=== PATIENT | male | born 1960 | race Caucasian/White ===

== ENCOUNTER 2020-08-09 17:12 | Inpatient (IN) ==
[2020-08-09 17:45] LABS: ABG Base Excess -10.2 MMOL/L (-2.5-2.5); ABG HCO3 16.6 MMOL/L (20-26); ABG Oxygen Saturation 97.8 % (95-100); ABG PCO2 54.8 MM HG (35-48); ABG TCO2 17.5 MMOL/L (23-27)
[2020-08-09 17:46] LABS: ABG PH 7.166 (7.35-7.45)
[2020-08-09 17:56] LABS: Basophils % 0.1 % (0.0-0.8); Eosinophils # 0.2 10*3/uL (0.0-0.87); Eosinophils % 0.5 % (0.00-10.9); Hemoglobin 15.9 GM/DL (14.0-18.0); Immature Granulocytes % 3.5 %; Immature Granulocytes Absolute 1.26 #; Lymphocytes # 2.3 10*3/uL (1.4-4.0); Lymphocytes % 6.6 % (21.2-54.2); Mean Corpuscular HGB Conc 33.1 GM/DL (32-36); Mean Corpuscular Volume 103.2 FL (87-102); Mean Platelet Volume 9.2 FL (9.6-12.0); Monocytes % 7.9 % (1.7-12.7); Neutrophils % 81.4 % (38.7-73.9); Platelet Count 147 T/CUMM (130-400); Red Blood Count 4.65 MC/CUMM (3.8-5.5); Red Cell Distribution Width 17.3 % (9.3-17.3); White Blood Count 35.7 T/CUMM (4-12)
[2020-08-09 18:08] LABS: ABG Base Excess -10.2 MMOL/L (-2.5-2.5); ABG HCO3 16.7 MMOL/L (20-26); ABG Oxygen Saturation 99.3 % (95-100); ABG PCO2 46.5 MM HG (35-48); ABG TCO2 15.9 MMOL/L (23-27); Glucose Heart Surgery 170 MG/DL (74-106); Hematocrit Heart Surgery 51.1 PERCENT (42-52); Hemoglobin Heart Surgery 16.7 G/DL (14.0-18.0); Ionized Calcium Arterial 1.27 MMOL/L (1.21-1.46); PCO2 Patient Temp Arterial 46.5 MMHG; PH Patient Temp Arterial 7.206; Patient Temperature 37 CELCIUS; Sodium Heart/CVR 143 MMOL/L (135-145)
[2020-08-09 18:12] LABS: ABG PH 7.206 (7.35-7.45)
[2020-08-09] MEDS ORDERED: HEPARIN 5,000 UNIT/1 ML VIAL ONE (18:21)
[2020-08-09] MEDS ORDERED: ceFAZolin 1,000 MG VIAL ONE ×2 (18:21→19:25)
[2020-08-09 18:36] LABS: Albumin 1.6 G/DL (3.4-5.0); Bilirubin,Total 0.4 MG/DL (0.2-1.0); Calcium 7.7 MG/DL (8.5-10.1); Osmolality,Calculated 287.1 MOS/KG (273-304); Total Protein 3.4 G/DL (6.4-8.3)
[2020-08-09] MEDS ORDERED: MIDAZOLAM 2 MG/2 ML VIAL ONE ×2 (19:21→20:14)
[2020-08-09] MEDS ORDERED: SEVOFLURANE 1 UNIT/15 MINUTE INH ONE ×10 (19:21→21:02)
[2020-08-09] MEDS ORDERED: fentaNYL 100 MCG/2 ML VIAL ONE (19:21)
[2020-08-09] MEDS ORDERED: ROCURONIUM 50 MG/5 ML VIAL IV ONE ×2 (19:21→19:25)
[2020-08-09] MEDS ORDERED: CALCIUM CHLORIDE 1,000 MG/10 ML VIAL IV ONE (19:25)
[2020-08-09] MEDS ORDERED: LACTATED RINGERS 1,000 ML IV ONE (19:25)
[2020-08-09] MEDS ORDERED: EPINEPHrine 1 MG/ML VIAL ONE (19:25)
[2020-08-09] MEDS ORDERED: SODIUM CHLORIDE 0.9% 4,000 ML IV ONE (19:25)
[2020-08-09] MEDS ORDERED: PHENYLEPHRINE 1 MG/10 ML SYRINGE IV ONE ×2 (19:25→19:37)
[2020-08-09] MEDS ORDERED: SODIUM BICARBONATE 50 MEQ/50 ML VIAL IV ONE (19:25)
[2020-08-09 19:39] LABS: Acanthocytes 1+; Anisocytosis 1+; Lymphocytes 4 % (20-55); Segmented Neutrophils 91 % (50-85); Total Cells Counted 100
[2020-08-09 19:40] LABS: Microcytosis Slight
[2020-08-09 20:52] LABS: Basophils # 0.1 10*3/uL (0.0-0.2); Basophils % 0.5 % (0.0-0.8); Eosinophils % 0.1 % (0.00-10.9); Hematocrit 49.1 VOL% (42.0-52.0); Hemoglobin 16.8 GM/DL (14.0-18.0); Immature Granulocytes % 0.6 %; Immature Granulocytes Absolute 0.09 #; Lymphocytes # 1.1 10*3/uL (1.4-4.0); Mean Corpuscular HGB Conc 34.2 GM/DL (32-36); Mean Corpuscular Volume 91.8 FL (87-102); Mean Platelet Volume 9.2 FL (9.6-12.0); Monocytes % 5.3 % (1.7-12.7); Neutrophils % 85.5 % (38.7-73.9); Platelet Count 110 T/CUMM (130-400); Red Blood Count 5.35 MC/CUMM (3.8-5.5); Red Cell Distribution Width 19.7 % (9.3-17.3)
[2020-08-09 20:53] LABS: ABG Base Excess -6.8 MMOL/L (-2.5-2.5); ABG Oxygen Saturation 95.8 % (95-100); ABG PCO2 45.2 MM HG (35-48); ABG PH 7.267 (7.35-7.45); ABG PO2 84.6 MM HG (80-95); ABG TCO2 17.5 MMOL/L (23-27)
[2020-08-09 21:11] LABS: Albumin 2.8 G/DL (3.4-5.0); Bilirubin,Total 1.1 MG/DL (0.2-1.0); Osmolality,Calculated 294.4 MOS/KG (273-304); Potassium 5.7 MMOL/L (3.5-5.1); Total Protein 5.3 G/DL (6.4-8.3)
[2020-08-09] MEDS: DEXTROSE 5% LACTATED RINGERS 1,000 ML IV SCH (21:14)
[2020-08-09 21:22] LABS: PT Patient Result 11.2 SECS (9.8-11.9); Partial Thromboplastin Time 26.8 SECS (23.9-33.8)
[2020-08-09 21:22] LABS: Anisocytosis 1+; Hypochromasia Slight; Lymphocytes 8 % (20-55); Myelocytes 1 %; Segmented Neutrophils 85 % (50-85); Total Cells Counted 100
[2020-08-09 21:23] LABS: Microcytosis Slight; Platelet Estimate Normal; Reactive Lymphocytes 3+
[2020-08-09] MEDS: HYDROmorphone 2 MG/1 ML VIAL IV PRN (21:47)
[2020-08-09] MEDS: fentaNYL INJ 1,250 MCG in SODIUM CHLORIDE 0.9% 225 ML IV PRN (22:35)
[2020-08-09] MEDS ORDERED: hydrALAZINE 20 MG/1 ML VIAL IV ONE (22:37)
[2020-08-09] MEDS ORDERED: niCARdipine INJ 25 MG in SODIUM CHLORIDE 0.9% 240 ML IV PRN (23:13)
[2020-08-09] MEDS ORDERED: cloNIDine 0.3 MG/24 HR PATCH TRANSDERM SCH (23:30)
[2020-08-09] MEDS: METOPROLOL TARTRATE 5 MG/5 ML VIAL IV PRN (23:35)
[2020-08-09 23:54] LABS: ABG Base Excess -5.3 MMOL/L (-2.5-2.5); ABG HCO3 20.2 MMOL/L (20-26); ABG Oxygen Saturation 99.1 % (95-100); ABG PCO2 48.6 MM HG (35-48); ABG PH 7.273 (7.35-7.45); ABG TCO2 18.8 MMOL/L (23-27)
[2020-08-10] MEDS ORDERED: ROCURONIUM 50 MG/5 ML VIAL IV ONE ×11 (01:43→14:07)
[2020-08-10] MEDS ORDERED: MIDAZOLAM 2 MG/2 ML VIAL ONE ×3 (01:43→11:20)
[2020-08-10] MEDS ORDERED: BUPIVACAINE MPF 0.25% 30 ML VIAL ONE (01:50)
[2020-08-10] MEDS ORDERED: HEPARIN 5,000 UNIT/1 ML VIAL ONE (01:50)
[2020-08-10] MEDS ORDERED: LIDOCAINE MPF 1% /EPI 30 ML VIAL ONE (01:50)
[2020-08-10] MEDS ORDERED: DEXTROSE 50% 25 GM/50 ML VIAL IV ONE (01:53)
[2020-08-10] MEDS ORDERED: DEXTROSE 50% 25 GM/50 ML VIAL IV PRN ×2 (02:11→02:24)
[2020-08-10] MEDS ORDERED: ceFAZolin 2,000 MG in PREMIX 1 EACH IV SCH (02:24)
[2020-08-10] MEDS ORDERED: GLUCAGON 1 MG VIAL IM PRN (02:24)
[2020-08-10] MEDS ORDERED: ceFAZolin 1,000 MG VIAL ONE (02:43)
[2020-08-10] MEDS ORDERED: PHENYLEPHRINE 1 MG/10 ML SYRINGE IV ONE ×3 (02:46→13:32)
[2020-08-10] MEDS ORDERED: SEVOFLURANE 1 UNIT/15 MINUTE INH ONE ×8 (03:42→14:03)
[2020-08-10] MEDS: DEXTROSE 5% LACTATED RINGERS 1,000 ML IV SCH ×3 (05:13→16:40)
[2020-08-10] MEDS: fentaNYL INJ 1,250 MCG in SODIUM CHLORIDE 0.9% 225 ML IV PRN ×2 (05:15→10:43)
[2020-08-10 05:18] LABS: ABG HCO3 24.1 MMOL/L (20-26); ABG Oxygen Saturation 95.3 % (95-100); ABG PCO2 37.8 MM HG (35-48); ABG PH 7.423 (7.35-7.45); ABG PO2 73.2 MM HG (80-95); ABG TCO2 25.3 MMOL/L (23-27)
[2020-08-10 05:28] LABS: Basophils # 0.1 10*3/uL (0.0-0.2); Basophils % 0.5 % (0.0-0.8); Eosinophils % 0.3 % (0.00-10.9); Hematocrit 45.3 VOL% (42.0-52.0); Hemoglobin 15.9 GM/DL (14.0-18.0); Immature Granulocytes % 0.5 %; Immature Granulocytes Absolute 0.05 #; Lymphocytes # 0.4 10*3/uL (1.4-4.0); Lymphocytes % 3.6 % (21.2-54.2); Mean Corpuscular HGB Conc 35.1 GM/DL (32-36); Mean Corpuscular Volume 89.7 FL (87-102); Mean Platelet Volume 9.2 FL (9.6-12.0); Monocytes % 5.9 % (1.7-12.7); Neutrophils % 89.2 % (38.7-73.9); Red Blood Count 5.05 MC/CUMM (3.8-5.5); Red Cell Distribution Width 20.3 % (9.3-17.3); White Blood Count 11.1 T/CUMM (4-12)
[2020-08-10 05:30] LABS: Platelet Count 106 T/CUMM (130-400)
[2020-08-10 06:00] LABS: Albumin 2.5 G/DL (3.4-5.0); Bilirubin,Total 2.1 MG/DL (0.2-1.0); Calcium 7.9 MG/DL (8.5-10.1); Osmolality,Calculated 295.3 MOS/KG (273-304); Potassium 4.9 MMOL/L (3.5-5.1); Total Protein 4.8 G/DL (6.4-8.3)
[2020-08-10 06:28] LABS: Band Neutrophils 5 % (0-10); Lymphocytes 5 % (20-55); Platelet Estimate Decreased; Segmented Neutrophils 84 % (50-85); Total Cells Counted 100
[2020-08-10] MEDS ORDERED: NOREPINEPHRINE 4 MG/4 ML VIAL IV ONE (07:18)
[2020-08-10] MEDS ORDERED: SODIUM CHLORIDE 0.9% 500 ML IV ONE (07:27)
[2020-08-10 07:38] LABS: ABG Base Excess 0.4 MMOL/L (-2.5-2.5); ABG HCO3 24.7 MMOL/L (20-26); ABG Oxygen Saturation 97.8 % (95-100); ABG PCO2 42.8 MM HG (35-48); ABG PH 7.386 (7.35-7.45); ABG PO2 96.8 MM HG (80-95); ABG TCO2 21.7 MMOL/L (23-27)
[2020-08-10] MEDS: INSULIN REGULAR 100 UNIT/ML SUBCUT SCH ×4 (07:38→23:06)
[2020-08-10] MEDS: NOREPINEPHRINE 8 MG in SODIUM CHLORIDE 0.9% 242 ML IV PRN ×2 (07:39→16:41)
[2020-08-10 07:41] LABS: Hematocrit 44.2 VOL% (42.0-52.0); Hemoglobin 15.4 GM/DL (14.0-18.0)
[2020-08-10 10:01] LABS: CKMB % 0.4 %
[2020-08-10 10:07] LABS: Troponin I 4.94 NG/ML (0.00-0.045)
[2020-08-10] MEDS ORDERED: ETOMIDATE 40 MG/20 ML VIAL IV ONE (11:23)
[2020-08-10] MEDS ORDERED: fentaNYL INJ 2,500 MCG in SODIUM CHLORIDE 0.9% 450 ML IV PRN (11:40)
[2020-08-10] MEDS ORDERED: DEXAMETHASONE 4 MG/1 ML VIAL ONE ×3 (12:02→14:08)
[2020-08-10] MEDS ORDERED: fentaNYL 100 MCG/2 ML VIAL ONE (12:51)
[2020-08-10] MEDS ORDERED: PHENYLEPHRINE 10 MG/1 ML VIAL IV ONE ×2 (13:45→13:48)
[2020-08-10] MEDS ORDERED: SODIUM CHLORIDE 0.9% 250 ML IV ONE ×2 (13:45→13:47)
[2020-08-10] MEDS ORDERED: LACTATED RINGERS 1,000 ML IV ONE (13:45)
[2020-08-10] MEDS: cefOXitin 2,000 MG in SYRINGE 1 EACH IV SCH ×3 (14:14→21:28)
[2020-08-10 16:36] LABS: Bilirubin,Urine Negative (Negative); Blood, Urine Large mg/dL (Negative); Glucose,Urine (UA) Negative (Negative); Ketones,Urine Negative (Negative); Mucus,Urine Occasional /LPF (Occasional); Nitrite,Urine Negative (Negative); Protein,Urine Negative; RBC,Urine 4 /HPF (0-4); Urine Appearance CLEAR (Clear); Urine Color Yellow (Yellow); Urine Specific Gravity 1.021 (1.001-1.035); Urine Urobilinogen < 2.0 EU/DL (0.2-1.0); WBC,Urine 1 /HPF (0-6)
[2020-08-11] MEDS: fentaNYL INJ 2,500 MCG in SODIUM CHLORIDE 0.9% 75 ML IV PRN ×3 (00:18→21:17)
[2020-08-11] MEDS: DEXTROSE 5% LACTATED RINGERS 1,000 ML IV SCH ×3 (01:23→17:14)
[2020-08-11] MEDS: NOREPINEPHRINE 8 MG in SODIUM CHLORIDE 0.9% 242 ML IV PRN ×2 (01:24→11:00)
[2020-08-11] MEDS: cefOXitin 2,000 MG in SYRINGE 1 EACH IV SCH ×2 (04:40→10:30)
[2020-08-11 04:49] LABS: ABG Base Excess 3.5 MMOL/L (-2.5-2.5); ABG HCO3 27.6 MMOL/L (20-26); ABG Oxygen Saturation 98.9 % (95-100); ABG PCO2 33.1 MM HG (35-48); ABG PH 7.504 (7.35-7.45); ABG TCO2 22.2 MMOL/L (23-27)
[2020-08-11 04:56] LABS: Basophils # 0.2 10*3/uL (0.0-0.2); Basophils % 0.8 % (0.0-0.8); Hematocrit 41.3 VOL% (42.0-52.0); Hemoglobin 14.2 GM/DL (14.0-18.0); Immature Granulocytes % 1.9 %; Lymphocytes # 0.5 10*3/uL (1.4-4.0); Lymphocytes % 2.2 % (21.2-54.2); Mean Corpuscular HGB Conc 34.4 GM/DL (32-36); Mean Corpuscular Volume 91.2 FL (87-102); Mean Platelet Volume 10.1 FL (9.6-12.0); Monocytes % 2.9 % (1.7-12.7); Neutrophils % 92.2 % (38.7-73.9); Platelet Count 113 T/CUMM (130-400); Red Blood Count 4.53 MC/CUMM (3.8-5.5); Red Cell Distribution Width 19.6 % (9.3-17.3); White Blood Count 21.4 T/CUMM (4-12)
[2020-08-11 05:16] LABS: Bilirubin,Total 2.2 MG/DL (0.2-1.0); Calcium 7.1 MG/DL (8.5-10.1); Potassium 4.1 MMOL/L (3.5-5.1); Total Protein 4.7 G/DL (6.4-8.3)
[2020-08-11 05:18] LABS: Band Neutrophils 5 % (0-10); Lymphocytes 3 % (20-55); Segmented Neutrophils 86 % (50-85); Total Cells Counted 100
[2020-08-11 05:19] LABS: Platelet Estimate Decreased
[2020-08-11 05:25] LABS: Troponin I 1.37 NG/ML (0.00-0.045)
[2020-08-11] MEDS: INSULIN REGULAR 100 UNIT/ML SUBCUT SCH ×4 (05:45→23:50)
[2020-08-11] MEDS ORDERED: ROCURONIUM 50 MG/5 ML VIAL IV ONE ×2 (08:25→08:26)
[2020-08-11] MEDS ORDERED: MIDAZOLAM 2 MG/2 ML VIAL ONE (08:26)
[2020-08-11] MEDS ORDERED: PHENYLEPHRINE 10 MG/1 ML VIAL IV ONE (08:28)
[2020-08-11] MEDS ORDERED: FAMOTIDINE 20 MG/2 ML VIAL IV SCH (09:00)
[2020-08-11] MEDS ORDERED: ceFAZolin 1,000 MG VIAL ONE (09:25)
[2020-08-11] MEDS ORDERED: MAGNESIUM SULF RIDER 2 GM in PREMIX 1 EACH IV ONE (10:30)
[2020-08-11] MEDS ORDERED: LEVOFLOXACIN INJ 750 MG in PREMIX 1 EACH IV ONE (11:00)
[2020-08-11] MEDS: metroNIDAZOLE INJ 500 MG in PREMIX 1 EACH IV SCH ×2 (12:24→21:11)
[2020-08-11] MEDS: ceFAZolin 1,000 MG in SYRINGE 1 EACH IV SCH (17:41)
[2020-08-11] MEDS: HYDROCORTISONE 100 MG VIAL IV SCH (17:41)
[2020-08-11] MEDS: NOREPINEPHRINE 16 MG in SODIUM CHLORIDE 0.9% 234 ML IV PRN (19:50)
[2020-08-12] MEDS ORDERED: PHENYLEPHRINE DRIP 40 MG/250 ML PREMIX IV PRN (01:04)
[2020-08-12] MEDS ORDERED: PHENYLEPHRINE DRIP 40 MG/250 ML PREMIX IV ONE (01:07)
[2020-08-12 01:21] LABS: ABG Base Excess 1.3 MMOL/L (-2.5-2.5); ABG HCO3 25.4 MMOL/L (20-26); ABG Oxygen Saturation 90.5 % (95-100); ABG PCO2 48.9 MM HG (35-48); ABG PH 7.359 (7.35-7.45); ABG PO2 62.7 MM HG (80-95); ABG TCO2 24.4 MMOL/L (23-27)
[2020-08-12 01:24] LABS: Basophils # 0.1 10*3/uL (0.0-0.2); Basophils % 0.5 % (0.0-0.8); Eosinophils # 0.1 10*3/uL (0.0-0.87); Eosinophils % 0.5 % (0.00-10.9); Hematocrit 38.1 VOL% (42.0-52.0); Hemoglobin 12.7 GM/DL (14.0-18.0); Immature Granulocytes Absolute 0.17 #; Lymphocytes # 0.6 10*3/uL (1.4-4.0); Lymphocytes % 3.6 % (21.2-54.2); Mean Corpuscular HGB Conc 33.3 GM/DL (32-36); Mean Platelet Volume 10.4 FL (9.6-12.0); Monocytes % 2.3 % (1.7-12.7); Neutrophils % 92.1 % (38.7-73.9); Platelet Count 103 T/CUMM (130-400); Red Blood Count 4.01 MC/CUMM (3.8-5.5); Red Cell Distribution Width 18.7 % (9.3-17.3); White Blood Count 17.4 T/CUMM (4-12)
[2020-08-12 01:40] LABS: Albumin 1.8 G/DL (3.4-5.0); Bilirubin,Total 2.5 MG/DL (0.2-1.0); Calcium 6.8 MG/DL (8.5-10.1); Osmolality,Calculated 297.6 MOS/KG (273-304); Potassium 4.2 MMOL/L (3.5-5.1); Total Protein 4.9 G/DL (6.4-8.3)
[2020-08-12 01:53] LABS: Band Neutrophils 4 % (0-10); Lymphocytes 3 % (20-55); Platelet Estimate Adequate; Segmented Neutrophils 89 % (50-85); Total Cells Counted 100
[2020-08-12] MEDS: MIDAZOLAM 100 MG in SODIUM CHLORIDE 0.9% 80 ML IV PRN ×2 (02:02→16:00)
[2020-08-12] MEDS: ceFAZolin 1,000 MG in SYRINGE 1 EACH IV SCH ×3 (03:16→17:16)
[2020-08-12 04:30] LABS: ABG Base Excess 1.9 MMOL/L (-2.5-2.5); ABG HCO3 26.1 MMOL/L (20-26); ABG PCO2 44.8 MM HG (35-48); ABG PH 7.392 (7.35-7.45); ABG TCO2 24.1 MMOL/L (23-27)
[2020-08-12] MEDS: fentaNYL INJ 2,500 MCG in SODIUM CHLORIDE 0.9% 75 ML IV PRN ×3 (04:43→20:09)
[2020-08-12] MEDS: metroNIDAZOLE INJ 500 MG in PREMIX 1 EACH IV SCH ×3 (04:55→20:59)
[2020-08-12] MEDS: HYDROCORTISONE 100 MG VIAL IV SCH ×3 (05:07→20:59)
[2020-08-12] MEDS: NOREPINEPHRINE 16 MG in SODIUM CHLORIDE 0.9% 234 ML IV PRN ×2 (05:36→17:18)
[2020-08-12] MEDS: INSULIN REGULAR 100 UNIT/ML SUBCUT SCH ×4 (05:52→23:41)
[2020-08-12] MEDS ORDERED: HYDROCORTISONE 100 MG VIAL IV SCH (07:02)
[2020-08-12] MEDS: FAMOTIDINE 20 MG/2 ML VIAL IV SCH ×2 (09:43→20:59)
[2020-08-12] MEDS: MULTIVITAMIN LIQUID (CENTRUM) 60 ML BOTTLE PO SCH (09:43)
[2020-08-12] MEDS ORDERED: ALBUMIN 5% 25 GM in PREMIX 1 EACH IV ONE (12:30)
[2020-08-12] MEDS: LEVOFLOXACIN INJ 750 MG in PREMIX 1 EACH IV SCH (12:42)
[2020-08-12] MEDS: ACETAMINOPHEN 325 MG/10.15 ML UDCUP PO PRN ×2 (12:46→18:06)
[2020-08-13] MEDS: ACETAMINOPHEN 325 MG/10.15 ML UDCUP PO PRN ×2 (00:44→10:23)
[2020-08-13] MEDS: SODIUM HYPOCHLORITE 0.25% IRRIG 473 ML BOTTLE TOP PRN (02:00)
[2020-08-13] MEDS: ceFAZolin 1,000 MG in SYRINGE 1 EACH IV SCH ×3 (02:14→18:49)
[2020-08-13] MEDS ORDERED: HEPARIN/NACL 0.9% 2 UNITS/ML 500 ML IV ONE (02:52)
[2020-08-13] MEDS: fentaNYL INJ 2,500 MCG in SODIUM CHLORIDE 0.9% 75 ML IV PRN (03:25)
[2020-08-13 04:58] LABS: Basophils # 0.1 10*3/uL (0.0-0.2); Basophils % 0.5 % (0.0-0.8); Eosinophils # 0.1 10*3/uL (0.0-0.87); Eosinophils % 0.5 % (0.00-10.9); Hematocrit 34.3 VOL% (42.0-52.0); Immature Granulocytes % 0.5 %; Immature Granulocytes Absolute 0.06 #; Lymphocytes # 0.7 10*3/uL (1.4-4.0); Lymphocytes % 5.5 % (21.2-54.2); Mean Corpuscular HGB Conc 32.1 GM/DL (32-36); Mean Corpuscular Volume 98.8 FL (87-102); Mean Platelet Volume 9.9 FL (9.6-12.0); Monocytes % 6.2 % (1.7-12.7); Neutrophils % 86.8 % (38.7-73.9); Platelet Count 108 T/CUMM (130-400); Red Blood Count 3.47 MC/CUMM (3.8-5.5); Red Cell Distribution Width 18.5 % (9.3-17.3); White Blood Count 12.8 T/CUMM (4-12)
[2020-08-13] MEDS: metroNIDAZOLE INJ 500 MG in PREMIX 1 EACH IV SCH ×3 (05:02→21:13)
[2020-08-13 05:06] LABS: PT Patient Result 10.9 SECS (9.8-11.9)
[2020-08-13 05:14] LABS: ABG Base Excess 2.4 MMOL/L (-2.5-2.5); ABG HCO3 26.9 MMOL/L (20-26); ABG Oxygen Saturation 98.4 % (95-100); ABG PCO2 41.6 MM HG (35-48); ABG PH 7.429 (7.35-7.45); ABG PO2 133.6 MM HG (80-95); ABG TCO2 28.2 MMOL/L (23-27)
[2020-08-13 05:15] LABS: Bilirubin,Total 3.3 MG/DL (0.2-1.0); Calcium 7.3 MG/DL (8.5-10.1); Osmolality,Calculated 312.9 MOS/KG (273-304); Potassium 4.2 MMOL/L (3.5-5.1); Total Protein 5.3 G/DL (6.4-8.3)
[2020-08-13 05:17] LABS: Hypochromasia 1+; Lymphocytes 4 % (20-55); Microcytosis 1+; Platelet Estimate Decreased; Segmented Neutrophils 93 % (50-85); Total Cells Counted 100
[2020-08-13 05:18] LABS: Ovalocytes Slight
[2020-08-13] MEDS: INSULIN REGULAR 100 UNIT/ML SUBCUT SCH ×3 (05:58→18:46)
[2020-08-13] MEDS: MIDAZOLAM 100 MG in SODIUM CHLORIDE 0.9% 80 ML IV PRN (08:25)
[2020-08-13] MEDS ORDERED: MIDAZOLAM 2 MG/2 ML VIAL ONE (09:46)
[2020-08-13] MEDS ORDERED: fentaNYL 100 MCG/2 ML VIAL ONE (09:47)
[2020-08-13] MEDS ORDERED: ROCURONIUM 50 MG/5 ML VIAL IV ONE (09:47)
[2020-08-13] MEDS ORDERED: ALBUMIN 5% 12.5 GM/250 ML VIAL IV ONE (09:53)
[2020-08-13] MEDS ORDERED: NOREPINEPHRINE 16 MG in DEXTROSE 5% 234 ML IV PRN (10:03)
[2020-08-13] MEDS: FAMOTIDINE 20 MG/2 ML VIAL IV SCH ×2 (10:06→21:12)
[2020-08-13] MEDS: HYDROCORTISONE 100 MG VIAL IV SCH ×2 (10:11→21:13)
[2020-08-13] MEDS: MULTIVITAMIN LIQUID (CENTRUM) 60 ML BOTTLE PO SCH (10:19)
[2020-08-13] MEDS: fentaNYL INJ 2,500 MCG in DEXTROSE 5% 75 ML IV PRN ×2 (11:00→18:24)
[2020-08-13] MEDS ORDERED: SEVOFLURANE 1 UNIT/15 MINUTE INH ONE ×9 (12:29→12:41)
[2020-08-13] MEDS ORDERED: MINERAL OIL/PETROLATUM OPH OINT 3.5 GM TUBE ONE (13:09)
[2020-08-13 14:01] LABS: Hematocrit 32.2 VOL% (42.0-52.0); Hemoglobin 10.2 GM/DL (14.0-18.0)
[2020-08-13] MEDS: LEVOFLOXACIN INJ 750 MG in PREMIX 1 EACH IV SCH (14:29)
[2020-08-14] MEDS: INSULIN REGULAR 100 UNIT/ML SUBCUT SCH ×4 (00:12→19:07)
[2020-08-14] MEDS: ceFAZolin 1,000 MG in SYRINGE 1 EACH IV SCH ×3 (02:30→19:04)
[2020-08-14] MEDS: fentaNYL INJ 2,500 MCG in DEXTROSE 5% 75 ML IV PRN ×2 (02:50→13:19)
[2020-08-14 03:33] LABS: ABG Base Excess 3.2 MMOL/L (-2.5-2.5); ABG HCO3 28.5 MMOL/L (20-26); ABG Oxygen Saturation 96.1 % (95-100); ABG PCO2 46.2 MM HG (35-48); ABG PH 7.408 (7.35-7.45); ABG PO2 82.6 MM HG (80-95); ABG TCO2 29.9 MMOL/L (23-27); Allen Test Positive; Pt O2 Delivery Device Ventilator
[2020-08-14 04:15] LABS: Basophils # 0.1 10*3/uL (0.0-0.2); Basophils % 0.9 % (0.0-0.8); Eosinophils # 0.1 10*3/uL (0.0-0.87); Eosinophils % 0.9 % (0.00-10.9); Hematocrit 31.9 VOL% (42.0-52.0); Hemoglobin 9.9 GM/DL (14.0-18.0); Immature Granulocytes Absolute 0.06 #; Lymphocytes # 0.5 10*3/uL (1.4-4.0); Mean Corpuscular Volume 102.2 FL (87-102); Mean Platelet Volume 10.6 FL (9.6-12.0); Monocytes % 13.6 % (1.7-12.7); Neutrophils % 74.6 % (38.7-73.9); Red Blood Count 3.12 MC/CUMM (3.8-5.5); Red Cell Distribution Width 18.4 % (9.3-17.3); White Blood Count 5.9 T/CUMM (4-12)
[2020-08-14] MEDS: MIDAZOLAM 100 MG in SODIUM CHLORIDE 0.9% 80 ML IV PRN (04:15)
[2020-08-14 04:18] LABS: Platelet Count 98 T/CUMM (130-400)
[2020-08-14 04:36] LABS: Albumin 1.8 G/DL (3.4-5.0); Calcium 7.5 MG/DL (8.5-10.1); Osmolality,Calculated 322.3 MOS/KG (273-304); Potassium 4.4 MMOL/L (3.5-5.1); Total Protein 5.1 G/DL (6.4-8.3)
[2020-08-14 04:37] LABS: Eosinophils 2 % (0-10); Hypochromasia Slight; Lymphocytes 8 % (20-55); Macrocytosis Slight; Platelet Estimate Decreased; Segmented Neutrophils 86 % (50-85); Total Cells Counted 100
[2020-08-14] MEDS: metroNIDAZOLE INJ 500 MG in PREMIX 1 EACH IV SCH ×3 (05:40→20:04)
[2020-08-14] MEDS ORDERED: MIDAZOLAM 100 MG in DEXTROSE 5% 80 ML IV PRN (08:34)
[2020-08-14] MEDS: HYDROCORTISONE 100 MG VIAL IV SCH ×2 (09:16→20:04)
[2020-08-14] MEDS: FAMOTIDINE 20 MG/2 ML VIAL IV SCH ×2 (09:20→20:03)
[2020-08-14] MEDS: MULTIVITAMIN LIQUID (CENTRUM) 60 ML BOTTLE PO SCH (09:25)
[2020-08-14] MEDS: LEVOFLOXACIN INJ 750 MG in PREMIX 1 EACH IV SCH (13:13)
[2020-08-14 13:21] LABS: Bilirubin,Direct 1.95 MG/DL (0.0-0.20); Bilirubin,Total 2.9 MG/DL (0.2-1.0)
[2020-08-14] MEDS: ACETAMINOPHEN 325 MG/10.15 ML UDCUP PO PRN ×2 (16:37→21:41)
[2020-08-15] MEDS: fentaNYL INJ 2,500 MCG in DEXTROSE 5% 75 ML IV PRN (01:00)
[2020-08-15] MEDS: INSULIN REGULAR 100 UNIT/ML SUBCUT SCH ×4 (01:05→18:20)
[2020-08-15] MEDS: ceFAZolin 1,000 MG in SYRINGE 1 EACH IV SCH ×3 (01:54→18:20)
[2020-08-15 03:59] LABS: ABG Base Excess 2.7 MMOL/L (-2.5-2.5); ABG HCO3 27.3 MMOL/L (20-26); ABG Oxygen Saturation 98.6 % (95-100); ABG PO2 165.4 MM HG (80-95); ABG TCO2 28.5 MMOL/L (23-27); Allen Test Positive; Pt O2 Delivery Device Ventilator
[2020-08-15 04:29] LABS: Basophils % 0.7 % (0.0-0.8); Eosinophils % 0.7 % (0.00-10.9); Hematocrit 30.8 VOL% (42.0-52.0); Hemoglobin 9.3 GM/DL (14.0-18.0); Immature Granulocytes % 0.7 %; Immature Granulocytes Absolute 0.03 #; Lymphocytes # 0.6 10*3/uL (1.4-4.0); Lymphocytes % 14.6 % (21.2-54.2); Mean Corpuscular HGB Conc 30.2 GM/DL (32-36); Mean Corpuscular Volume 102.3 FL (87-102); Mean Platelet Volume 10.8 FL (9.6-12.0); Monocytes % 18.9 % (1.7-12.7); Neutrophils % 64.4 % (38.7-73.9); Platelet Count 114 T/CUMM (130-400); Red Blood Count 3.01 MC/CUMM (3.8-5.5); Red Cell Distribution Width 18.2 % (9.3-17.3); White Blood Count 4.2 T/CUMM (4-12)
[2020-08-15] MEDS: metroNIDAZOLE INJ 500 MG in PREMIX 1 EACH IV SCH ×3 (04:56→20:37)
[2020-08-15 04:58] LABS: Band Neutrophils 10 % (0-10); Hypochromasia 1+; Lymphocytes 11 % (20-55); Segmented Neutrophils 66 % (50-85); Total Cells Counted 100
[2020-08-15 04:59] LABS: Macrocytosis 1+
[2020-08-15 05:15] LABS: Albumin 1.8 G/DL (3.4-5.0); Bilirubin,Total 2.4 MG/DL (0.2-1.0); Calcium 7.7 MG/DL (8.5-10.1); Osmolality,Calculated 323.6 MOS/KG (273-304); Potassium 4.4 MMOL/L (3.5-5.1); Total Protein 5.4 G/DL (6.4-8.3)
[2020-08-15] MEDS: FAMOTIDINE 20 MG/2 ML VIAL IV SCH ×2 (09:23→20:38)
[2020-08-15] MEDS: MULTIVITAMIN LIQUID (CENTRUM) 60 ML BOTTLE PO SCH (09:23)
[2020-08-15] MEDS: HYDROCORTISONE 100 MG VIAL IV SCH ×2 (09:23→20:36)
[2020-08-15] MEDS: LEVOFLOXACIN INJ 750 MG in PREMIX 1 EACH IV SCH (12:19)
[2020-08-15] MEDS: DEXTROSE 5% 1,000 ML IV SCH (12:20)
[2020-08-15] MEDS: HYDROmorphone 2 MG/1 ML VIAL IV PRN ×2 (15:11→23:03)
[2020-08-15] MEDS: ACETAMINOPHEN 325 MG/10.15 ML UDCUP PO PRN (21:00)
[2020-08-16] MEDS: INSULIN REGULAR 100 UNIT/ML SUBCUT SCH ×4 (00:20→18:09)
[2020-08-16] MEDS: METOPROLOL TARTRATE 5 MG/5 ML VIAL IV PRN ×4 (00:51→23:11)
[2020-08-16] MEDS: ceFAZolin 1,000 MG in SYRINGE 1 EACH IV SCH ×3 (01:58→18:08)
[2020-08-16] MEDS: metroNIDAZOLE INJ 500 MG in PREMIX 1 EACH IV SCH ×3 (04:03→21:21)
[2020-08-16 04:33] LABS: ABG Base Excess 4.9 MMOL/L (-2.5-2.5); ABG HCO3 28.9 MMOL/L (20-26); ABG Oxygen Saturation 99.6 % (95-100); ABG PCO2 42.2 MM HG (35-48); ABG PH 7.452 (7.35-7.45); ABG TCO2 24.8 MMOL/L (23-27); Allen Test Positive; Pt O2 Delivery Device Ventilator
[2020-08-16 04:39] LABS: Basophils # 0.1 10*3/uL (0.0-0.2); Basophils % 0.8 % (0.0-0.8); Eosinophils % 0.2 % (0.00-10.9); Hematocrit 32.9 VOL% (42.0-52.0); Hemoglobin 10.3 GM/DL (14.0-18.0); Immature Granulocytes % 0.5 %; Immature Granulocytes Absolute 0.03 #; Lymphocytes # 0.7 10*3/uL (1.4-4.0); Lymphocytes % 10.7 % (21.2-54.2); Mean Corpuscular HGB Conc 31.3 GM/DL (32-36); Mean Corpuscular Volume 101.2 FL (87-102); Mean Platelet Volume 11.1 FL (9.6-12.0); Monocytes % 13.3 % (1.7-12.7); Neutrophils % 74.5 % (38.7-73.9); Platelet Count 141 T/CUMM (130-400); Red Blood Count 3.25 MC/CUMM (3.8-5.5); Red Cell Distribution Width 17.9 % (9.3-17.3); White Blood Count 6.1 T/CUMM (4-12)
[2020-08-16 04:51] LABS: Albumin 1.9 G/DL (3.4-5.0); Bilirubin,Total 2.2 MG/DL (0.2-1.0); Calcium 7.8 MG/DL (8.5-10.1); Osmolality,Calculated 319.6 MOS/KG (273-304); Potassium 3.9 MMOL/L (3.5-5.1); Total Protein 5.8 G/DL (6.4-8.3)
[2020-08-16] MEDS: SODIUM HYPOCHLORITE 0.25% IRRIG 473 ML BOTTLE TOP PRN ×2 (05:13→13:00)
[2020-08-16] MEDS: HYDROmorphone 2 MG/1 ML VIAL IV PRN ×5 (05:13→22:06)
[2020-08-16] MEDS: DEXTROSE 5% 1,000 ML IV SCH ×2 (05:30→21:56)
[2020-08-16 07:56] LABS: Band Neutrophils 1 % (0-10); Lymphocytes 9 % (20-55); Segmented Neutrophils 81 % (50-85); Total Cells Counted 100
[2020-08-16 08:01] LABS: Platelet Estimate Normal
[2020-08-16 08:02] LABS: Anisocytosis 1+; Macrocytosis Slight; Polychromasia Slight
[2020-08-16] MEDS: ACETAMINOPHEN 325 MG/10.15 ML UDCUP PO PRN ×2 (08:16→21:42)
[2020-08-16] MEDS: FAMOTIDINE 20 MG/2 ML VIAL IV SCH ×2 (08:17→21:15)
[2020-08-16] MEDS: HYDROCORTISONE 100 MG VIAL IV SCH ×2 (08:17→21:18)
[2020-08-16] MEDS: MULTIVITAMIN LIQUID (CENTRUM) 60 ML BOTTLE PO SCH (08:17)
[2020-08-16] MEDS ORDERED: DEXMEDETOMIDINE 200 MCG in SODIUM CHLORIDE 0.9% 48 ML IV PRN (10:10)
[2020-08-16] MEDS: LEVOFLOXACIN INJ 750 MG in PREMIX 1 EACH IV SCH (11:07)
[2020-08-16 13:16] LABS: ABG Base Excess 4.6 MMOL/L (-2.5-2.5); ABG HCO3 29.1 MMOL/L (20-26); ABG Oxygen Saturation 98.5 % (95-100); ABG PCO2 42.9 MM HG (35-48); ABG PH 7.449 (7.35-7.45); ABG PO2 141.4 MM HG (80-95); ABG TCO2 30.4 MMOL/L (23-27)
[2020-08-16] MEDS: hydrALAZINE 20 MG/1 ML VIAL IV PRN (15:26)
[2020-08-17] MEDS: INSULIN REGULAR 100 UNIT/ML SUBCUT SCH ×4 (00:27→18:01)
[2020-08-17] MEDS: ceFAZolin 1,000 MG in SYRINGE 1 EACH IV SCH ×3 (02:42→18:10)
[2020-08-17] MEDS: HYDROmorphone 2 MG/1 ML VIAL IV PRN ×2 (02:50→08:20)
[2020-08-17 04:10] LABS: Basophils # 0.1 10*3/uL (0.0-0.2); Basophils % 0.6 % (0.0-0.8); Eosinophils % 0.3 % (0.00-10.9); Hematocrit 34.1 VOL% (42.0-52.0); Hemoglobin 10.9 GM/DL (14.0-18.0); Immature Granulocytes % 0.7 %; Immature Granulocytes Absolute 0.07 #; Lymphocytes # 0.7 10*3/uL (1.4-4.0); Lymphocytes % 7.1 % (21.2-54.2); Mean Corpuscular Volume 100.3 FL (87-102); Monocytes % 9.7 % (1.7-12.7); NRBC # 0.02 10*3/uL; Neutrophils % 81.6 % (38.7-73.9); Platelet Count 181 T/CUMM (130-400); Red Cell Distribution Width 17.7 % (9.3-17.3); White Blood Count 9.5 T/CUMM (4-12)
[2020-08-17 04:21] LABS: Albumin 1.9 G/DL (3.4-5.0); Bilirubin,Total 1.9 MG/DL (0.2-1.0); Osmolality,Calculated 314.4 MOS/KG (273-304); Potassium 3.6 MMOL/L (3.5-5.1); Total Protein 5.8 G/DL (6.4-8.3)
[2020-08-17 04:30] LABS: ABG HCO3 29.7 MMOL/L (20-26); ABG Oxygen Saturation 98.3 % (95-100); ABG PCO2 39.8 MM HG (35-48); ABG PH 7.491 (7.35-7.45); ABG PO2 142.1 MM HG (80-95); ABG TCO2 30.9 MMOL/L (23-27); Allen Test Positive
[2020-08-17 06:01] LABS: Anisocytosis 1+; Band Neutrophils 41 % (0-10); Eosinophils 1 % (0-10); Lymphocytes 7 % (20-55); Macrocytosis 1+; Platelet Estimate Normal; Segmented Neutrophils 43 % (50-85); Total Cells Counted 100
[2020-08-17 06:02] LABS: Smudge Cells Few
[2020-08-17] MEDS: metroNIDAZOLE INJ 500 MG in PREMIX 1 EACH IV SCH ×3 (06:23→22:24)
[2020-08-17] MEDS: hydrALAZINE 20 MG/1 ML VIAL IV PRN ×2 (07:05→13:30)
[2020-08-17] MEDS: MULTIVITAMIN LIQUID (CENTRUM) 60 ML BOTTLE PO SCH (09:17)
[2020-08-17] MEDS: SODIUM HYPOCHLORITE 0.25% IRRIG 473 ML BOTTLE TOP PRN (09:19)
[2020-08-17] MEDS: ONDANSETRON 4 MG/2 ML VIAL IV PRN ×3 (09:20→19:35)
[2020-08-17] MEDS: HYDROCORTISONE 100 MG VIAL IV SCH ×2 (09:47→22:17)
[2020-08-17] MEDS: FAMOTIDINE 20 MG/2 ML VIAL IV SCH ×2 (09:47→22:23)
[2020-08-17] MEDS: LEVOFLOXACIN INJ 750 MG in PREMIX 1 EACH IV SCH (13:13)
[2020-08-17] MEDS: DEXTROSE 5% 1,000 ML IV SCH (15:05)
[2020-08-17] MEDS: ACETAMINOPHEN 325 MG/10.15 ML UDCUP PO PRN (16:17)
[2020-08-17] MEDS: POTASSIUM CHLORIDE RIDER 20 MEQ in PREMIX 1 EACH IV PRN (17:23)
[2020-08-17] MEDS ORDERED: ONDANSETRON 4 MG/2 ML VIAL IV ONE (20:50)
[2020-08-18] MEDS: INSULIN REGULAR 100 UNIT/ML SUBCUT SCH ×4 (00:45→17:44)
[2020-08-18] MEDS: DEXTROSE 5% 1,000 ML IV SCH ×4 (01:08→22:51)
[2020-08-18] MEDS: ceFAZolin 1,000 MG in SYRINGE 1 EACH IV SCH ×2 (04:35→09:07)
[2020-08-18] MEDS: HYDROmorphone 2 MG/1 ML VIAL IV PRN ×5 (04:39→21:58)
[2020-08-18] MEDS: metroNIDAZOLE INJ 500 MG in PREMIX 1 EACH IV SCH ×3 (04:49→20:47)
[2020-08-18 04:56] LABS: Basophils % 0.4 % (0.0-0.8); Eosinophils % 0.1 % (0.00-10.9); Hematocrit 33.8 VOL% (42.0-52.0); Immature Granulocytes % 0.7 %; Immature Granulocytes Absolute 0.08 #; Lymphocytes # 0.7 10*3/uL (1.4-4.0); Lymphocytes % 6.5 % (21.2-54.2); Mean Corpuscular HGB Conc 32.5 GM/DL (32-36); Mean Corpuscular Volume 97.1 FL (87-102); Mean Platelet Volume 10.8 FL (9.6-12.0); Monocytes % 8.4 % (1.7-12.7); Neutrophils % 83.9 % (38.7-73.9); Platelet Count 226 T/CUMM (130-400); Red Blood Count 3.48 MC/CUMM (3.8-5.5); Red Cell Distribution Width 17.2 % (9.3-17.3)
[2020-08-18 05:18] LABS: Hypochromasia 1+; Lymphocytes 4 % (20-55); Microcytosis 1+; Platelet Estimate Adequate; Segmented Neutrophils 90 % (50-85); Total Cells Counted 100
[2020-08-18 06:18] LABS: Calcium 7.8 MG/DL (8.5-10.1); Osmolality,Calculated 299.4 MOS/KG (273-304); Potassium 3.6 MMOL/L (3.5-5.1)
[2020-08-18] MEDS: FAMOTIDINE 20 MG/2 ML VIAL IV SCH ×2 (08:24→20:46)
[2020-08-18] MEDS: cloNIDine 0.3 MG/24 HR PATCH TRANSDERM SCH ×2 (08:24→09:07)
[2020-08-18] MEDS: HYDROCORTISONE 100 MG VIAL IV SCH ×2 (08:24→20:44)
[2020-08-18] MEDS: LEVOFLOXACIN INJ 750 MG in PREMIX 1 EACH IV SCH (12:25)
[2020-08-18] MEDS: SODIUM HYPOCHLORITE 0.25% IRRIG 473 ML BOTTLE TOP PRN (20:45)
[2020-08-18] MEDS: ONDANSETRON 4 MG/2 ML VIAL IV PRN (22:03)
[2020-08-19] MEDS: INSULIN REGULAR 100 UNIT/ML SUBCUT SCH ×5 (00:12→20:59)
[2020-08-19] MEDS: HYDROmorphone 2 MG/1 ML VIAL IV PRN ×4 (00:23→18:10)
[2020-08-19] MEDS: DEXTROSE 5% 1,000 ML IV SCH ×5 (01:31→20:05)
[2020-08-19] MEDS ORDERED: diphenhydrAMINE CAP 25 MG CAPSULE PO ONE (01:55)
[2020-08-19] MEDS: FAMOTIDINE 20 MG/2 ML VIAL IV SCH ×2 (08:10→20:41)
[2020-08-19] MEDS: ACETAMINOPHEN 325 MG/10.15 ML UDCUP PO PRN ×2 (08:10→21:29)
[2020-08-19] MEDS: HYDROCORTISONE 100 MG VIAL IV SCH ×2 (08:11→20:39)
[2020-08-19] MEDS: amLODIPine 10 MG TABLET PO SCH (08:44)
[2020-08-19 09:03] LABS: Basophils % 0.4 % (0.0-0.8); Eosinophils # 0.1 10*3/uL (0.0-0.87); Eosinophils % 0.8 % (0.00-10.9); Hematocrit 32.5 VOL% (42.0-52.0); Hemoglobin 10.6 GM/DL (14.0-18.0); Immature Granulocytes % 1.2 %; Immature Granulocytes Absolute 0.13 #; Lymphocytes # 1.1 10*3/uL (1.4-4.0); Lymphocytes % 10.9 % (21.2-54.2); Mean Corpuscular HGB Conc 32.6 GM/DL (32-36); Mean Corpuscular Volume 95.9 FL (87-102); Mean Platelet Volume 10.7 FL (9.6-12.0); Monocytes % 9.7 % (1.7-12.7); Platelet Count 253 T/CUMM (130-400); Red Blood Count 3.39 MC/CUMM (3.8-5.5); Red Cell Distribution Width 16.7 % (9.3-17.3); White Blood Count 10.5 T/CUMM (4-12)
[2020-08-19 09:22] LABS: Calcium 7.2 MG/DL (8.5-10.1); Osmolality,Calculated 281.5 MOS/KG (273-304); Potassium 3.3 MMOL/L (3.5-5.1)
[2020-08-19 09:25] LABS: Band Neutrophils 1 % (0-10); Eosinophils 2 % (0-10); Hypochromasia 1+; Lymphocytes 6 % (20-55); Microcytosis 1+; Platelet Estimate Adequate; Segmented Neutrophils 81 % (50-85); Total Cells Counted 100
[2020-08-19] MEDS: POTASSIUM CHLORIDE RIDER 20 MEQ in PREMIX 1 EACH IV PRN ×2 (11:00→15:02)
[2020-08-19] MEDS: LEVOFLOXACIN INJ 750 MG in PREMIX 1 EACH IV SCH (11:46)
[2020-08-19] MEDS: SODIUM HYPOCHLORITE 0.25% IRRIG 473 ML BOTTLE TOP PRN (22:32)
[2020-08-20] MEDS: DEXTROSE 5% 1,000 ML IV SCH ×5 (02:51→23:39)
[2020-08-20 05:21] LABS: Basophils # 0.1 10*3/uL (0.0-0.2); Basophils % 0.7 % (0.0-0.8); Eosinophils # 0.1 10*3/uL (0.0-0.87); Eosinophils % 1.1 % (0.00-10.9); Hematocrit 33.9 VOL% (42.0-52.0); Hemoglobin 10.4 GM/DL (14.0-18.0); Immature Granulocytes % 2.7 %; Immature Granulocytes Absolute 0.25 #; Lymphocytes # 1.2 10*3/uL (1.4-4.0); Lymphocytes % 12.6 % (21.2-54.2); Mean Corpuscular HGB Conc 30.7 GM/DL (32-36); Mean Corpuscular Volume 99.4 FL (87-102); Mean Platelet Volume 10.7 FL (9.6-12.0); Monocytes % 12.9 % (1.7-12.7); Platelet Count 340 T/CUMM (130-400); Red Blood Count 3.41 MC/CUMM (3.8-5.5); Red Cell Distribution Width 16.6 % (9.3-17.3); White Blood Count 9.2 T/CUMM (4-12)
[2020-08-20 05:38] LABS: Albumin 1.8 G/DL (3.4-5.0); Calcium 7.6 MG/DL (8.5-10.1); Osmolality,Calculated 281.4 MOS/KG (273-304); Potassium 3.4 MMOL/L (3.5-5.1); Total Protein 5.6 G/DL (6.4-8.3)
[2020-08-20] MEDS: INSULIN REGULAR 100 UNIT/ML SUBCUT SCH ×4 (07:36→21:00)
[2020-08-20] MEDS: HYDROCORTISONE 100 MG VIAL IV SCH ×2 (07:56→20:26)
[2020-08-20] MEDS: amLODIPine 10 MG TABLET PO SCH (08:44)
[2020-08-20] MEDS: FAMOTIDINE 20 MG/2 ML VIAL IV SCH ×2 (08:44→20:28)
[2020-08-20] MEDS: HYDROmorphone 2 MG/1 ML VIAL IV PRN ×2 (08:45→17:23)
[2020-08-20] MEDS: ONDANSETRON 4 MG/2 ML VIAL IV PRN (08:45)
[2020-08-20] MEDS: POTASSIUM CHLORIDE RIDER 20 MEQ in PREMIX 1 EACH IV PRN (08:46)
[2020-08-20] MEDS ORDERED: POTASSIUM CHLORIDE RIDER 10 MEQ in PREMIX 1 EACH IV PRN (08:49)
[2020-08-21] MEDS: DEXTROSE 5% 1,000 ML IV SCH ×4 (01:36→19:39)
[2020-08-21] MEDS: INSULIN REGULAR 100 UNIT/ML SUBCUT SCH ×4 (08:23→20:39)
[2020-08-21] MEDS: HYDROCORTISONE 100 MG VIAL IV SCH (08:24)
[2020-08-21] MEDS: amLODIPine 10 MG TABLET PO SCH (08:25)
[2020-08-21] MEDS: FAMOTIDINE 20 MG/2 ML VIAL IV SCH ×2 (08:25→20:42)
[2020-08-21] MEDS: HYDROmorphone 2 MG/1 ML VIAL IV PRN (14:09)
[2020-08-22] MEDS: DEXTROSE 5% 1,000 ML IV SCH ×3 (00:47→22:33)
[2020-08-22 06:23] LABS: Basophils # 0.1 10*3/uL (0.0-0.2); Basophils % 0.9 % (0.0-0.8); Eosinophils # 0.2 10*3/uL (0.0-0.87); Eosinophils % 1.4 % (0.00-10.9); Hematocrit 34.9 VOL% (42.0-52.0); Hemoglobin 11.4 GM/DL (14.0-18.0); Immature Granulocytes % 5.9 %; Immature Granulocytes Absolute 0.68 #; Lymphocytes % 8.3 % (21.2-54.2); Mean Corpuscular HGB Conc 32.7 GM/DL (32-36); Mean Corpuscular Volume 96.7 FL (87-102); Mean Platelet Volume 10.3 FL (9.6-12.0); Monocytes % 13.3 % (1.7-12.7); NRBC # 0.02 10*3/uL; Neutrophils % 70.2 % (38.7-73.9); Platelet Count 411 T/CUMM (130-400); Red Blood Count 3.61 MC/CUMM (3.8-5.5); Red Cell Distribution Width 17.2 % (9.3-17.3); White Blood Count 11.6 T/CUMM (4-12)
[2020-08-22 06:40] LABS: Calcium 7.5 MG/DL (8.5-10.1); Osmolality,Calculated 282.3 MOS/KG (273-304); Potassium 3.8 MMOL/L (3.5-5.1)
[2020-08-22 06:50] LABS: Eosinophils 2 % (0-10); Lymphocytes 8 % (20-55); Platelet Estimate Increased; Segmented Neutrophils 82 % (50-85); Total Cells Counted 100
[2020-08-22] MEDS: INSULIN REGULAR 100 UNIT/ML SUBCUT SCH ×4 (07:49→22:29)
[2020-08-22] MEDS: FAMOTIDINE 20 MG/2 ML VIAL IV SCH ×2 (08:30→22:29)
[2020-08-22] MEDS: amLODIPine 10 MG TABLET PO SCH (08:30)
[2020-08-22] MEDS: ESCITALOPRAM 10 MG TABLET PO SCH (12:49)
[2020-08-22] MEDS: HYDROmorphone 2 MG/1 ML VIAL IV PRN ×2 (17:01→22:28)
[2020-08-23] MEDS: DEXTROSE 5% 1,000 ML IV SCH (05:46)
[2020-08-23] MEDS: HYDROmorphone 2 MG/1 ML VIAL IV PRN ×2 (10:01→18:02)
[2020-08-23] MEDS: ESCITALOPRAM 10 MG TABLET PO SCH (10:02)
[2020-08-23] MEDS: amLODIPine 10 MG TABLET PO SCH (10:02)
[2020-08-23] MEDS: INSULIN REGULAR 100 UNIT/ML SUBCUT SCH ×3 (10:02→22:28)
[2020-08-23] MEDS: FAMOTIDINE 20 MG/2 ML VIAL IV SCH ×2 (10:04→22:18)
[2020-08-24] MEDS: DEXTROSE 5% 1,000 ML IV SCH ×2 (00:54→22:58)
[2020-08-24] MEDS: HYDROmorphone 2 MG/1 ML VIAL IV PRN ×4 (07:42→16:56)
[2020-08-24] MEDS: INSULIN REGULAR 100 UNIT/ML SUBCUT SCH ×4 (10:08→22:23)
[2020-08-24] MEDS: ESCITALOPRAM 10 MG TABLET PO SCH (10:16)
[2020-08-24] MEDS: amLODIPine 10 MG TABLET PO SCH (10:16)
[2020-08-24] MEDS: FAMOTIDINE 20 MG/2 ML VIAL IV SCH ×2 (10:17→22:22)
[2020-08-24] MEDS: SODIUM HYPOCHLORITE 0.25% IRRIG 473 ML BOTTLE TOP PRN (11:31)
[2020-08-24] MEDS: TAMSULOSIN 0.4 MG CAPSULE PO SCH ×2 (16:57→22:22)
[2020-08-24] MEDS: OXYBUTYNIN 5 MG TABLET PO SCH ×2 (16:57→22:22)
[2020-08-24 19:47] LABS: Bilirubin,Urine Negative (Negative); Blood, Urine Moderate mg/dL (Negative); Glucose,Urine (UA) Negative (Negative); Ketones,Urine Negative (Negative); Nitrite,Urine Negative (Negative); Protein,Urine Negative; Urine Appearance Slightly Hazy (Clear); Urine Color Amber (Yellow); Urine Specific Gravity 1.013 (1.001-1.035)
[2020-08-24 19:57] LABS: Bacteria,Urine Moderate /HPF (Few); Squamous Epithelial Cell,Urine Rare /HPF (0-10); WBC,Urine 25-30 /HPF (0-6)
[2020-08-25] MEDS: HYDROmorphone 2 MG/1 ML VIAL IV PRN ×6 (01:45→23:03)
[2020-08-25 06:15] LABS: Basophils # 0.1 10*3/uL (0.0-0.2); Basophils % 0.7 % (0.0-0.8); Eosinophils # 0.2 10*3/uL (0.0-0.87); Eosinophils % 1.6 % (0.00-10.9); Hematocrit 33.8 VOL% (42.0-52.0); Immature Granulocytes % 1.9 %; Immature Granulocytes Absolute 0.24 #; Lymphocytes # 1.2 10*3/uL (1.4-4.0); Lymphocytes % 9.6 % (21.2-54.2); Mean Corpuscular HGB Conc 32.5 GM/DL (32-36); Mean Corpuscular Volume 95.5 FL (87-102); Mean Platelet Volume 9.9 FL (9.6-12.0); Monocytes % 9.5 % (1.7-12.7); Neutrophils % 76.7 % (38.7-73.9); Platelet Count 432 T/CUMM (130-400); Red Blood Count 3.54 MC/CUMM (3.8-5.5); Red Cell Distribution Width 16.7 % (9.3-17.3); White Blood Count 12.7 T/CUMM (4-12)
[2020-08-25 06:39] LABS: Calcium 7.6 MG/DL (8.5-10.1); Potassium 3.7 MMOL/L (3.5-5.1)
[2020-08-25] MEDS: cloNIDine 0.3 MG/24 HR PATCH TRANSDERM SCH (09:34)
[2020-08-25] MEDS: OXYBUTYNIN 5 MG TABLET PO SCH ×3 (09:35→22:53)
[2020-08-25] MEDS: FAMOTIDINE 20 MG/2 ML VIAL IV SCH ×2 (09:35→22:55)
[2020-08-25] MEDS: TAMSULOSIN 0.4 MG CAPSULE PO SCH ×2 (09:35→22:54)
[2020-08-25] MEDS: amLODIPine 10 MG TABLET PO SCH (09:36)
[2020-08-25] MEDS: ESCITALOPRAM 10 MG TABLET PO SCH (09:36)
[2020-08-25] MEDS: DEXTROSE 5% 1,000 ML IV SCH (09:36)
[2020-08-25] MEDS: INSULIN REGULAR 100 UNIT/ML SUBCUT SCH ×4 (09:36→23:30)
[2020-08-25] MEDS ORDERED: cefTRIAXone 1,000 MG in SYRINGE 1 EACH IV SCH (17:00)
[2020-08-25] MEDS: diphenhydrAMINE CAP 25 MG CAPSULE PO PRN (18:14)
[2020-08-26] MEDS: HYDROmorphone 2 MG/1 ML VIAL IV PRN ×6 (02:23→22:15)
[2020-08-26] MEDS: DEXTROSE 5% 1,000 ML IV SCH ×2 (06:29→18:11)
[2020-08-26] MEDS: INSULIN REGULAR 100 UNIT/ML SUBCUT SCH ×4 (08:18→22:43)
[2020-08-26] MEDS ORDERED: propofoL 200 MG/20 ML VIAL IV ONE (08:33)
[2020-08-26] MEDS ORDERED: fentaNYL 100 MCG/2 ML VIAL ONE (08:33)
[2020-08-26] MEDS ORDERED: LIDOCAINE 2% 5 ML VIAL ONE (08:33)
[2020-08-26] MEDS ORDERED: MIDAZOLAM 2 MG/2 ML VIAL ONE ×2 (08:33→08:34)
[2020-08-26] MEDS ORDERED: KETAMINE 500 MG/10 ML VIAL ONE (08:34)
[2020-08-26] MEDS ORDERED: BUPIVACAINE MPF 0.25% 30 ML VIAL ONE (08:42)
[2020-08-26] MEDS ORDERED: LIDOCAINE 1% 20 ML VIAL ONE (08:43)
[2020-08-26] MEDS ORDERED: LACTATED RINGERS 1,000 ML IV SCH (09:00)
[2020-08-26] MEDS ORDERED: SODIUM CHLORIDE 0.9% 250 ML IV ONE (09:09)
[2020-08-26] MEDS: OXYBUTYNIN 5 MG TABLET PO SCH ×3 (10:31→21:57)
[2020-08-26] MEDS: ESCITALOPRAM 10 MG TABLET PO SCH (10:31)
[2020-08-26] MEDS: FAMOTIDINE 20 MG/2 ML VIAL IV SCH ×2 (10:31→21:58)
[2020-08-26] MEDS: TAMSULOSIN 0.4 MG CAPSULE PO SCH ×2 (10:31→21:58)
[2020-08-26] MEDS: amLODIPine 10 MG TABLET PO SCH (12:14)
[2020-08-26] MEDS: MEROPENEM 500 MG in SODIUM CHLORIDE 0.9% 100 ML IV SCH ×2 (16:27→21:58)
[2020-08-27] MEDS: MEROPENEM 500 MG in SODIUM CHLORIDE 0.9% 100 ML IV SCH ×3 (03:27→15:58)
[2020-08-27] MEDS: HYDROmorphone 2 MG/1 ML VIAL IV PRN ×6 (03:27→19:59)
[2020-08-27] MEDS: TAMSULOSIN 0.4 MG CAPSULE PO SCH (10:32)
[2020-08-27] MEDS: diphenhydrAMINE CAP 25 MG CAPSULE PO PRN (10:33)
[2020-08-27] MEDS: OXYBUTYNIN 5 MG TABLET PO SCH ×2 (10:33→15:58)
[2020-08-27] MEDS: amLODIPine 10 MG TABLET PO SCH (10:33)
[2020-08-27] MEDS: ESCITALOPRAM 10 MG TABLET PO SCH (10:34)
[2020-08-27] MEDS: ENOXAPARIN 40 MG/0.4 ML SYRINGE SUBCUT SCH (14:52)
[2020-08-27] MEDS: INSULIN REGULAR 100 UNIT/ML SUBCUT SCH (20:30)
[2020-08-27] MEDS: FAMOTIDINE 20 MG/2 ML VIAL IV SCH (20:30)
[2020-08-28] MEDS: FAMOTIDINE 20 MG/2 ML VIAL IV SCH ×3 (00:23→20:00)
[2020-08-28] MEDS: TAMSULOSIN 0.4 MG CAPSULE PO SCH ×3 (00:23→20:00)
[2020-08-28] MEDS: OXYBUTYNIN 5 MG TABLET PO SCH ×4 (00:23→20:00)
[2020-08-28] MEDS: MEROPENEM 500 MG in SODIUM CHLORIDE 0.9% 100 ML IV SCH ×4 (00:24→18:00)
[2020-08-28] MEDS: INSULIN REGULAR 100 UNIT/ML SUBCUT SCH ×2 (00:43→19:31)
[2020-08-28] MEDS: HYDROmorphone 2 MG/1 ML VIAL IV PRN ×5 (06:04→19:36)
[2020-08-28] MEDS: ESCITALOPRAM 10 MG TABLET PO SCH (08:48)
[2020-08-28] MEDS: amLODIPine 10 MG TABLET PO SCH (11:07)
[2020-08-28] MEDS: ENOXAPARIN 40 MG/0.4 ML SYRINGE SUBCUT SCH (12:06)
[2020-08-28] MEDS: DEXTROSE 5% 1,000 ML IV SCH ×2 (19:30→20:18)
[2020-08-29] MEDS: MEROPENEM 500 MG in SODIUM CHLORIDE 0.9% 100 ML IV SCH ×4 (00:06→17:52)
[2020-08-29] MEDS: HYDROmorphone 2 MG/1 ML VIAL IV PRN ×3 (03:50→20:27)
[2020-08-29] MEDS: FAMOTIDINE 20 MG/2 ML VIAL IV SCH ×2 (09:45→20:28)
[2020-08-29] MEDS: ESCITALOPRAM 10 MG TABLET PO SCH (09:45)
[2020-08-29] MEDS: OXYBUTYNIN 5 MG TABLET PO SCH ×3 (09:45→20:28)
[2020-08-29] MEDS: amLODIPine 10 MG TABLET PO SCH (09:45)
[2020-08-29] MEDS: TAMSULOSIN 0.4 MG CAPSULE PO SCH ×2 (09:45→20:28)
[2020-08-29] MEDS: ENOXAPARIN 40 MG/0.4 ML SYRINGE SUBCUT SCH (12:06)
[2020-08-29] MEDS: diphenhydrAMINE CAP 25 MG CAPSULE PO PRN (20:27)
[2020-08-29] MEDS: DEXTROSE 5% 1,000 ML IV SCH (21:21)
[2020-08-30] MEDS: MEROPENEM 500 MG in SODIUM CHLORIDE 0.9% 100 ML IV SCH ×4 (01:45→18:34)
[2020-08-30] MEDS: HYDROmorphone 2 MG/1 ML VIAL IV PRN (03:30)
[2020-08-30 07:06] LABS: Basophils # 0.1 10*3/uL (0.0-0.2); Eosinophils # 0.2 10*3/uL (0.0-0.87); Eosinophils % 3.4 % (0.00-10.9); Hematocrit 33.7 VOL% (42.0-52.0); Hemoglobin 10.9 GM/DL (14.0-18.0); Immature Granulocytes Absolute 0.05 #; Lymphocytes # 0.9 10*3/uL (1.4-4.0); Lymphocytes % 18.3 % (21.2-54.2); Mean Corpuscular HGB Conc 32.3 GM/DL (32-36); Mean Corpuscular Volume 97.1 FL (87-102); Mean Platelet Volume 9.6 FL (9.6-12.0); Monocytes % 16.1 % (1.7-12.7); Neutrophils % 60.2 % (38.7-73.9); Platelet Count 369 T/CUMM (130-400); Red Blood Count 3.47 MC/CUMM (3.8-5.5); Red Cell Distribution Width 16.2 % (9.3-17.3)
[2020-08-30] MEDS: ESCITALOPRAM 10 MG TABLET PO SCH (08:08)
[2020-08-30] MEDS: TAMSULOSIN 0.4 MG CAPSULE PO SCH ×2 (08:08→20:40)
[2020-08-30] MEDS: amLODIPine 10 MG TABLET PO SCH (08:08)
[2020-08-30] MEDS: OXYBUTYNIN 5 MG TABLET PO SCH ×3 (08:08→20:40)
[2020-08-30] MEDS: FAMOTIDINE 20 MG/2 ML VIAL IV SCH ×2 (08:10→20:38)
[2020-08-30 08:37] LABS: Calcium 7.9 MG/DL (8.5-10.1); Osmolality,Calculated 271.8 MOS/KG (273-304); Potassium 3.8 MMOL/L (3.5-5.1)
[2020-08-30 08:46] LABS: Band Neutrophils 2 % (0-10); Eosinophils 3 % (0-10); Lymphocytes 15 % (20-55); Metamyelocytes 2 %; Platelet Estimate Normal; Segmented Neutrophils 60 % (50-85); Total Cells Counted 100
[2020-08-30 08:47] LABS: Hypochromasia Slight
[2020-08-30] MEDS: ENOXAPARIN 40 MG/0.4 ML SYRINGE SUBCUT SCH (12:26)
[2020-08-30] MEDS: diphenhydrAMINE CAP 25 MG CAPSULE PO PRN (16:27)
[2020-08-31] MEDS: MEROPENEM 500 MG in SODIUM CHLORIDE 0.9% 100 ML IV SCH ×4 (00:05→18:10)
[2020-08-31] MEDS: HYDROmorphone 2 MG/1 ML VIAL IV PRN ×4 (03:48→18:05)
[2020-08-31] MEDS: TAMSULOSIN 0.4 MG CAPSULE PO SCH ×2 (08:13→20:22)
[2020-08-31] MEDS: amLODIPine 10 MG TABLET PO SCH (08:13)
[2020-08-31] MEDS: ESCITALOPRAM 10 MG TABLET PO SCH (08:13)
[2020-08-31] MEDS: OXYBUTYNIN 5 MG TABLET PO SCH ×3 (08:13→20:22)
[2020-08-31] MEDS: FAMOTIDINE 20 MG/2 ML VIAL IV SCH ×2 (08:15→20:20)
[2020-08-31] MEDS: ENOXAPARIN 40 MG/0.4 ML SYRINGE SUBCUT SCH (11:59)
[2020-08-31] MEDS: diphenhydrAMINE CAP 25 MG CAPSULE PO PRN (20:22)
[2020-09-01] MEDS: MEROPENEM 500 MG in SODIUM CHLORIDE 0.9% 100 ML IV SCH ×4 (00:30→18:29)
[2020-09-01] MEDS: HYDROmorphone 2 MG/1 ML VIAL IV PRN ×2 (02:00→11:46)
[2020-09-01 05:56] LABS: Basophils % 0.8 % (0.0-0.8); Eosinophils # 0.2 10*3/uL (0.0-0.87); Eosinophils % 3.9 % (0.00-10.9); Hematocrit 36.4 VOL% (42.0-52.0); Hemoglobin 11.3 GM/DL (14.0-18.0); Immature Granulocytes % 1.2 %; Immature Granulocytes Absolute 0.06 #; Lymphocytes % 20.6 % (21.2-54.2); Mean Corpuscular Volume 99.5 FL (87-102); Mean Platelet Volume 9.1 FL (9.6-12.0); Monocytes % 17.5 % (1.7-12.7); Platelet Count 335 T/CUMM (130-400); Red Blood Count 3.66 MC/CUMM (3.8-5.5); Red Cell Distribution Width 16.3 % (9.3-17.3); White Blood Count 4.9 T/CUMM (4-12)
[2020-09-01 06:23] LABS: Calcium 7.8 MG/DL (8.5-10.1); Eosinophils 9 % (0-10); Hypochromasia 1+; Lymphocytes 22 % (20-55); Microcytosis 1+; Osmolality,Calculated 275.7 MOS/KG (273-304); Platelet Estimate Adequate; Potassium 4.1 MMOL/L (3.5-5.1); Segmented Neutrophils 57 % (50-85); Total Cells Counted 100
[2020-09-01] MEDS: OXYBUTYNIN 5 MG TABLET PO SCH ×3 (09:51→22:32)
[2020-09-01] MEDS: TAMSULOSIN 0.4 MG CAPSULE PO SCH ×2 (09:51→22:31)
[2020-09-01] MEDS: ESCITALOPRAM 10 MG TABLET PO SCH (09:51)
[2020-09-01] MEDS: cloNIDine 0.3 MG/24 HR PATCH TRANSDERM SCH (09:52)
[2020-09-01] MEDS: FAMOTIDINE 20 MG/2 ML VIAL IV SCH ×2 (09:52→22:32)
[2020-09-01] MEDS: amLODIPine 10 MG TABLET PO SCH (09:53)
[2020-09-01] MEDS: ENOXAPARIN 40 MG/0.4 ML SYRINGE SUBCUT SCH (15:08)
[2020-09-01] MEDS: diphenhydrAMINE CAP 25 MG CAPSULE PO PRN (19:48)
[2020-09-02] MEDS: MEROPENEM 500 MG in SODIUM CHLORIDE 0.9% 100 ML IV SCH ×4 (00:32→18:04)
[2020-09-02] MEDS: OXYBUTYNIN 5 MG TABLET PO SCH ×3 (08:34→21:42)
[2020-09-02] MEDS: ESCITALOPRAM 10 MG TABLET PO SCH (08:34)
[2020-09-02] MEDS: TAMSULOSIN 0.4 MG CAPSULE PO SCH ×2 (08:34→21:42)
[2020-09-02] MEDS: amLODIPine 10 MG TABLET PO SCH (08:34)
[2020-09-02] MEDS: FAMOTIDINE 20 MG/2 ML VIAL IV SCH ×2 (08:35→21:42)
[2020-09-02] MEDS: ENOXAPARIN 40 MG/0.4 ML SYRINGE SUBCUT SCH (11:49)
[2020-09-03] MEDS: MEROPENEM 500 MG in SODIUM CHLORIDE 0.9% 100 ML IV SCH (00:40)
[2020-09-03] MEDS: OXYBUTYNIN 5 MG TABLET PO SCH ×3 (09:50→21:07)
[2020-09-03] MEDS: TAMSULOSIN 0.4 MG CAPSULE PO SCH ×2 (09:50→21:07)
[2020-09-03] MEDS: FAMOTIDINE 20 MG/2 ML VIAL IV SCH ×2 (09:53→21:07)
[2020-09-03] MEDS: amLODIPine 10 MG TABLET PO SCH (09:53)
[2020-09-03] MEDS: ESCITALOPRAM 10 MG TABLET PO SCH (09:53)
[2020-09-03] MEDS ORDERED: LIDOCAINE 1%/EPI INJ 20 ML VIAL ONE (10:16)
[2020-09-03] MEDS ORDERED: BACITRACIN OINT 0.9 GM PACK TOP ONE (10:16)
[2020-09-03] MEDS ORDERED: BUPIVACAINE MPF 0.25% 30 ML VIAL ONE (10:16)
[2020-09-03] MEDS ORDERED: fentaNYL 100 MCG/2 ML VIAL ONE (10:19)
[2020-09-03] MEDS ORDERED: MIDAZOLAM 2 MG/2 ML VIAL ONE (10:19)
[2020-09-03] MEDS ORDERED: LIDOCAINE 2% 5 ML VIAL ONE (10:19)
[2020-09-03] MEDS ORDERED: propofoL 200 MG/20 ML VIAL IV ONE (10:19)
[2020-09-03] MEDS ORDERED: ONDANSETRON 4 MG/2 ML VIAL ONE (10:22)
[2020-09-03] MEDS ORDERED: DEXAMETHASONE 4 MG/1 ML VIAL ONE ×2 (10:22→12:18)
[2020-09-03] MEDS ORDERED: LACTATED RINGERS 1,000 ML IV SCH (10:30)
[2020-09-03] MEDS ORDERED: ACETAMINOPHEN 1,000 MG/100 ML VIAL IV ONE ×2 (10:39)
[2020-09-03] MEDS ORDERED: KETOROLAC 30 MG/1 ML VIAL ONE (10:39)
[2020-09-03] MEDS ORDERED: ePHEDrine 50 MG/ML VIAL ONE (12:14)
[2020-09-03] MEDS ORDERED: SEVOFLURANE 1 UNIT/15 MINUTE INH ONE (12:49)
[2020-09-03] MEDS ORDERED: MEPERIDINE 25 MG/1 ML VIAL ONE (13:00)
[2020-09-03] MEDS ORDERED: HYDROmorphone 2 MG/1 ML VIAL IV PRN (13:04)
[2020-09-03] MEDS ORDERED: MEPERIDINE 25 MG/1 ML VIAL IV PRN (13:04)
[2020-09-03] MEDS ORDERED: ONDANSETRON 4 MG/2 ML VIAL IV PRN (13:04)
[2020-09-03] MEDS: diphenhydrAMINE CAP 25 MG CAPSULE PO PRN (19:17)
[2020-09-04 05:40] LABS: Basophils % 0.3 % (0.0-0.8); Eosinophils % 0.3 % (0.00-10.9); Hemoglobin 11.3 GM/DL (14.0-18.0); Immature Granulocytes % 0.4 %; Immature Granulocytes Absolute 0.03 #; Lymphocytes # 0.9 10*3/uL (1.4-4.0); Mean Corpuscular HGB Conc 33.2 GM/DL (32-36); Mean Corpuscular Volume 95.5 FL (87-102); Mean Platelet Volume 9.2 FL (9.6-12.0); Monocytes % 8.5 % (1.7-12.7); Neutrophils % 78.5 % (38.7-73.9); Platelet Count 262 T/CUMM (130-400); Red Blood Count 3.56 MC/CUMM (3.8-5.5); Red Cell Distribution Width 16.3 % (9.3-17.3); White Blood Count 7.7 T/CUMM (4-12)
[2020-09-04 06:11] LABS: Calcium 8.1 MG/DL (8.5-10.1); Osmolality,Calculated 278.8 MOS/KG (273-304); Potassium 4.2 MMOL/L (3.5-5.1)
[2020-09-04] MEDS: FAMOTIDINE 20 MG/2 ML VIAL IV SCH ×2 (08:55→21:23)
[2020-09-04] MEDS: ESCITALOPRAM 10 MG TABLET PO SCH (08:56)
[2020-09-04] MEDS: TAMSULOSIN 0.4 MG CAPSULE PO SCH ×2 (08:56→21:22)
[2020-09-04] MEDS: OXYBUTYNIN 5 MG TABLET PO SCH ×3 (08:56→21:23)
[2020-09-04] MEDS: amLODIPine 10 MG TABLET PO SCH (08:56)
[2020-09-04] MEDS: diphenhydrAMINE CAP 25 MG CAPSULE PO PRN (21:23)
[2020-09-05] MEDS: amLODIPine 10 MG TABLET PO SCH (08:23)
[2020-09-05] MEDS: OXYBUTYNIN 5 MG TABLET PO SCH ×3 (08:23→20:52)
[2020-09-05] MEDS: TAMSULOSIN 0.4 MG CAPSULE PO SCH ×2 (08:23→20:52)
[2020-09-05] MEDS: ESCITALOPRAM 10 MG TABLET PO SCH (08:23)
[2020-09-05] MEDS: FAMOTIDINE 20 MG/2 ML VIAL IV SCH ×2 (08:29→20:52)
[2020-09-05] MEDS: diphenhydrAMINE CAP 25 MG CAPSULE PO PRN (20:57)
[2020-09-06] MEDS: hydrALAZINE 20 MG/1 ML VIAL IV PRN (04:45)
[2020-09-06 05:58] LABS: Basophils % 0.8 % (0.0-0.8); Eosinophils # 0.4 10*3/uL (0.0-0.87); Eosinophils % 7.9 % (0.00-10.9); Hematocrit 37.7 VOL% (42.0-52.0); Hemoglobin 12.3 GM/DL (14.0-18.0); Immature Granulocytes % 0.6 %; Immature Granulocytes Absolute 0.03 #; Lymphocytes # 1.1 10*3/uL (1.4-4.0); Lymphocytes % 20.9 % (21.2-54.2); Mean Corpuscular HGB Conc 32.6 GM/DL (32-36); Mean Corpuscular Volume 96.9 FL (87-102); Mean Platelet Volume 9.1 FL (9.6-12.0); Monocytes % 13.2 % (1.7-12.7); Neutrophils % 56.6 % (38.7-73.9); Platelet Count 247 T/CUMM (130-400); Red Blood Count 3.89 MC/CUMM (3.8-5.5); Red Cell Distribution Width 16.6 % (9.3-17.3); White Blood Count 5.1 T/CUMM (4-12)
[2020-09-06 06:14] LABS: Calcium 8.4 MG/DL (8.5-10.1); Osmolality,Calculated 276.7 MOS/KG (273-304); Potassium 3.9 MMOL/L (3.5-5.1)
[2020-09-06] MEDS: amLODIPine 10 MG TABLET PO SCH (08:42)
[2020-09-06] MEDS: ESCITALOPRAM 10 MG TABLET PO SCH (08:42)
[2020-09-06] MEDS: TAMSULOSIN 0.4 MG CAPSULE PO SCH ×2 (08:42→21:37)
[2020-09-06] MEDS: OXYBUTYNIN 5 MG TABLET PO SCH ×3 (08:43→21:37)
[2020-09-06] MEDS: FAMOTIDINE 20 MG/2 ML VIAL IV SCH ×2 (08:43→21:38)
[2020-09-06] MEDS: GABAPENTIN 100 MG CAPSULE PO SCH ×2 (13:00→21:37)
[2020-09-06] MEDS: LOSARTAN 50 MG TABLET PO SCH (13:00)
[2020-09-06] MEDS: diphenhydrAMINE CAP 25 MG CAPSULE PO PRN (21:37)
[2020-09-07 06:25] LABS: Basophils # 0.1 10*3/uL (0.0-0.2); Eosinophils # 0.5 10*3/uL (0.0-0.87); Eosinophils % 7.5 % (0.00-10.9); Hematocrit 38.5 VOL% (42.0-52.0); Hemoglobin 12.5 GM/DL (14.0-18.0); Immature Granulocytes % 0.4 %; Immature Granulocytes Absolute 0.03 #; Lymphocytes # 1.1 10*3/uL (1.4-4.0); Lymphocytes % 15.5 % (21.2-54.2); Mean Corpuscular HGB Conc 32.5 GM/DL (32-36); Mean Platelet Volume 9.1 FL (9.6-12.0); Monocytes % 12.8 % (1.7-12.7); Neutrophils % 62.8 % (38.7-73.9); Platelet Count 266 T/CUMM (130-400); Red Blood Count 4.01 MC/CUMM (3.8-5.5); Red Cell Distribution Width 16.6 % (9.3-17.3)
[2020-09-07 07:05] LABS: Calcium 8.3 MG/DL (8.5-10.1); Osmolality,Calculated 272.8 MOS/KG (273-304); Potassium 4.2 MMOL/L (3.5-5.1)
[2020-09-07] MEDS: FAMOTIDINE 20 MG/2 ML VIAL IV SCH (08:11)
[2020-09-07] MEDS: amLODIPine 10 MG TABLET PO SCH (08:12)
[2020-09-07] MEDS: GABAPENTIN 100 MG CAPSULE PO SCH ×2 (08:12→21:06)
[2020-09-07] MEDS: TAMSULOSIN 0.4 MG CAPSULE PO SCH ×2 (08:12→21:07)
[2020-09-07] MEDS: POLYETHYLENE GLYCOL POWDER 17 GM PACK PO SCH (08:12)
[2020-09-07] MEDS: ESCITALOPRAM 10 MG TABLET PO SCH (08:13)
[2020-09-07] MEDS: LOSARTAN 50 MG TABLET PO SCH (08:13)
[2020-09-07] MEDS: OXYBUTYNIN 5 MG TABLET PO SCH ×3 (08:13→21:06)
[2020-09-07] MEDS ORDERED: GABAPENTIN 100 MG CAPSULE PO ONE (09:30)
[2020-09-07] MEDS: diphenhydrAMINE CAP 25 MG CAPSULE PO PRN (21:07)
[2020-09-08] MEDS: LOSARTAN 50 MG TABLET PO SCH (09:09)
[2020-09-08] MEDS: GABAPENTIN 100 MG CAPSULE PO SCH (09:09)
[2020-09-08] MEDS: FAMOTIDINE 20 MG TABLET PO SCH ×2 (09:09→09:18)
[2020-09-08] MEDS: TAMSULOSIN 0.4 MG CAPSULE PO SCH ×2 (09:09→20:13)
[2020-09-08] MEDS: ESCITALOPRAM 10 MG TABLET PO SCH (09:09)
[2020-09-08] MEDS: amLODIPine 10 MG TABLET PO SCH (09:09)
[2020-09-08] MEDS: OXYBUTYNIN 5 MG TABLET PO SCH ×3 (09:09→20:13)
[2020-09-08] MEDS: cloNIDine 0.3 MG/24 HR PATCH TRANSDERM SCH (09:10)
[2020-09-08] MEDS: POLYETHYLENE GLYCOL POWDER 17 GM PACK PO SCH (09:10)
[2020-09-08] MEDS: GABAPENTIN 400 MG CAPSULE PO SCH (20:13)
[2020-09-08] MEDS: diphenhydrAMINE CAP 25 MG CAPSULE PO PRN (20:16)
[2020-09-09] MEDS: LOSARTAN 50 MG TABLET PO SCH (09:16)
[2020-09-09] MEDS: ENOXAPARIN 40 MG/0.4 ML SYRINGE SUBCUT SCH (09:16)
[2020-09-09] MEDS: GABAPENTIN 400 MG CAPSULE PO SCH ×2 (09:16→20:32)
[2020-09-09] MEDS: amLODIPine 10 MG TABLET PO SCH (09:16)
[2020-09-09] MEDS: OXYBUTYNIN 5 MG TABLET PO SCH ×3 (09:16→20:32)
[2020-09-09] MEDS: ESCITALOPRAM 10 MG TABLET PO SCH (09:17)
[2020-09-09] MEDS: FAMOTIDINE 20 MG TABLET PO SCH (09:17)
[2020-09-09] MEDS: TAMSULOSIN 0.4 MG CAPSULE PO SCH ×2 (09:17→20:32)
[2020-09-09] MEDS: POLYETHYLENE GLYCOL POWDER 17 GM PACK PO SCH (09:17)
[2020-09-09] MEDS: diphenhydrAMINE CAP 25 MG CAPSULE PO PRN (20:32)
[2020-09-10] MEDS: POLYETHYLENE GLYCOL POWDER 17 GM PACK PO SCH (09:50)
[2020-09-10] MEDS: TAMSULOSIN 0.4 MG CAPSULE PO SCH ×2 (09:51→20:56)
[2020-09-10] MEDS: OXYBUTYNIN 5 MG TABLET PO SCH ×3 (09:51→20:56)
[2020-09-10] MEDS: ESCITALOPRAM 10 MG TABLET PO SCH (09:51)
[2020-09-10] MEDS: ENOXAPARIN 40 MG/0.4 ML SYRINGE SUBCUT SCH (09:52)
[2020-09-10] MEDS: GABAPENTIN 400 MG CAPSULE PO SCH ×2 (09:52→20:56)
[2020-09-10] MEDS: FAMOTIDINE 20 MG TABLET PO SCH (09:52)
[2020-09-10] MEDS: LOSARTAN 50 MG TABLET PO SCH (09:52)
[2020-09-10] MEDS: amLODIPine 10 MG TABLET PO SCH (09:52)
[2020-09-10] MEDS: diphenhydrAMINE CAP 25 MG CAPSULE PO PRN (22:15)
[2020-09-11] MEDS: ESCITALOPRAM 10 MG TABLET PO SCH (10:20)
[2020-09-11] MEDS: POLYETHYLENE GLYCOL POWDER 17 GM PACK PO SCH (10:20)
[2020-09-11] MEDS: OXYBUTYNIN 5 MG TABLET PO SCH ×3 (10:20→20:59)
[2020-09-11] MEDS: GABAPENTIN 400 MG CAPSULE PO SCH ×2 (10:20→20:59)
[2020-09-11] MEDS: LOSARTAN 50 MG TABLET PO SCH (10:20)
[2020-09-11] MEDS: TAMSULOSIN 0.4 MG CAPSULE PO SCH ×2 (10:20→20:59)
[2020-09-11] MEDS: amLODIPine 10 MG TABLET PO SCH (10:20)
[2020-09-11] MEDS: ENOXAPARIN 40 MG/0.4 ML SYRINGE SUBCUT SCH (10:21)
[2020-09-11] MEDS: FAMOTIDINE 20 MG TABLET PO SCH (10:21)
[2020-09-11] MEDS: DOCUSATE SODIUM 100 MG CAPSULE PO SCH ×2 (12:02→20:59)
[2020-09-11] MEDS: diphenhydrAMINE CAP 25 MG CAPSULE PO PRN (20:59)
[2020-09-12] MEDS: POLYETHYLENE GLYCOL POWDER 17 GM PACK PO SCH (09:16)
[2020-09-12] MEDS: FAMOTIDINE 20 MG TABLET PO SCH (09:17)
[2020-09-12] MEDS: GABAPENTIN 400 MG CAPSULE PO SCH ×2 (09:17→20:34)
[2020-09-12] MEDS: ESCITALOPRAM 10 MG TABLET PO SCH (09:17)
[2020-09-12] MEDS: OXYBUTYNIN 5 MG TABLET PO SCH ×3 (09:17→20:33)
[2020-09-12] MEDS: DOCUSATE SODIUM 100 MG CAPSULE PO SCH ×2 (09:17→20:34)
[2020-09-12] MEDS: LOSARTAN 50 MG TABLET PO SCH (09:17)
[2020-09-12] MEDS: amLODIPine 10 MG TABLET PO SCH (09:17)
[2020-09-12] MEDS: TAMSULOSIN 0.4 MG CAPSULE PO SCH ×2 (09:17→20:34)
[2020-09-12] MEDS: ENOXAPARIN 40 MG/0.4 ML SYRINGE SUBCUT SCH (09:46)
[2020-09-12] MEDS: diphenhydrAMINE CAP 25 MG CAPSULE PO PRN (20:34)
[2020-09-13 06:48] LABS: Calcium 8.5 MG/DL (8.5-10.1); Osmolality,Calculated 280.3 MOS/KG (273-304); Potassium 4.1 MMOL/L (3.5-5.1)
[2020-09-13] MEDS: GABAPENTIN 400 MG CAPSULE PO SCH ×2 (09:06→20:05)
[2020-09-13] MEDS: LOSARTAN 50 MG TABLET PO SCH (09:06)
[2020-09-13] MEDS: ESCITALOPRAM 10 MG TABLET PO SCH (09:08)
[2020-09-13] MEDS: DOCUSATE SODIUM 100 MG CAPSULE PO SCH ×2 (09:08→20:05)
[2020-09-13] MEDS: OXYBUTYNIN 5 MG TABLET PO SCH ×3 (09:08→20:05)
[2020-09-13] MEDS: FAMOTIDINE 20 MG TABLET PO SCH (09:08)
[2020-09-13] MEDS: ENOXAPARIN 40 MG/0.4 ML SYRINGE SUBCUT SCH (09:09)
[2020-09-13] MEDS: TAMSULOSIN 0.4 MG CAPSULE PO SCH ×2 (09:09→20:05)
[2020-09-13] MEDS: amLODIPine 10 MG TABLET PO SCH (09:09)
[2020-09-13] MEDS: POLYETHYLENE GLYCOL POWDER 17 GM PACK PO SCH (09:09)
[2020-09-13] MEDS: diphenhydrAMINE CAP 25 MG CAPSULE PO PRN (20:05)
[2020-09-14] MEDS: GABAPENTIN 400 MG CAPSULE PO SCH ×2 (09:51→21:01)
[2020-09-14] MEDS: ENOXAPARIN 40 MG/0.4 ML SYRINGE SUBCUT SCH (09:51)
[2020-09-14] MEDS: POLYETHYLENE GLYCOL POWDER 17 GM PACK PO SCH (09:51)
[2020-09-14] MEDS: OXYBUTYNIN 5 MG TABLET PO SCH ×3 (09:51→21:02)
[2020-09-14] MEDS: FAMOTIDINE 20 MG TABLET PO SCH (09:51)
[2020-09-14] MEDS: ESCITALOPRAM 10 MG TABLET PO SCH (09:52)
[2020-09-14] MEDS: DOCUSATE SODIUM 100 MG CAPSULE PO SCH ×2 (09:52→21:02)
[2020-09-14] MEDS: amLODIPine 10 MG TABLET PO SCH (09:52)
[2020-09-14] MEDS: LOSARTAN 50 MG TABLET PO SCH (09:52)
[2020-09-14] MEDS: TAMSULOSIN 0.4 MG CAPSULE PO SCH ×2 (09:52→21:02)
[2020-09-14] MEDS: diphenhydrAMINE CAP 25 MG CAPSULE PO PRN (21:02)
[2020-09-15] MEDS: ESCITALOPRAM 10 MG TABLET PO SCH (10:29)
[2020-09-15] MEDS: OXYBUTYNIN 5 MG TABLET PO SCH ×3 (10:29→21:00)
[2020-09-15] MEDS: FAMOTIDINE 20 MG TABLET PO SCH (10:30)
[2020-09-15] MEDS: DOCUSATE SODIUM 100 MG CAPSULE PO SCH ×2 (10:30→20:59)
[2020-09-15] MEDS: GABAPENTIN 400 MG CAPSULE PO SCH ×2 (10:30→21:01)
[2020-09-15] MEDS: LOSARTAN 50 MG TABLET PO SCH (10:30)
[2020-09-15] MEDS: TAMSULOSIN 0.4 MG CAPSULE PO SCH ×2 (10:31→21:00)
[2020-09-15] MEDS: amLODIPine 10 MG TABLET PO SCH (10:31)
[2020-09-15] MEDS: POLYETHYLENE GLYCOL POWDER 17 GM PACK PO SCH (10:32)
[2020-09-15] MEDS: ENOXAPARIN 40 MG/0.4 ML SYRINGE SUBCUT SCH (10:32)
[2020-09-15] MEDS: diphenhydrAMINE CAP 25 MG CAPSULE PO PRN (21:01)
[2020-09-16 03:20] LABS: Basophils % 0.7 % (0.0-0.8); Eosinophils # 0.5 10*3/uL (0.0-0.87); Eosinophils % 8.2 % (0.00-10.9); Hematocrit 35.5 VOL% (42.0-52.0); Hemoglobin 11.6 GM/DL (14.0-18.0); Immature Granulocytes % 0.3 %; Immature Granulocytes Absolute 0.02 #; Lymphocytes # 1.4 10*3/uL (1.4-4.0); Lymphocytes % 23.5 % (21.2-54.2); Mean Corpuscular HGB Conc 32.7 GM/DL (32-36); Mean Corpuscular Volume 96.7 FL (87-102); Mean Platelet Volume 8.9 FL (9.6-12.0); Monocytes % 15.4 % (1.7-12.7); Neutrophils % 51.9 % (38.7-73.9); Platelet Count 378 T/CUMM (130-400); Red Blood Count 3.67 MC/CUMM (3.8-5.5); Red Cell Distribution Width 16.1 % (9.3-17.3)
[2020-09-16 03:35] LABS: Calcium 8.5 MG/DL (8.5-10.1); Osmolality,Calculated 274.8 MOS/KG (273-304); Potassium 4.1 MMOL/L (3.5-5.1)
[2020-09-16] MEDS: DOCUSATE SODIUM 100 MG CAPSULE PO SCH ×2 (08:54→20:55)
[2020-09-16] MEDS: POLYETHYLENE GLYCOL POWDER 17 GM PACK PO SCH (08:55)
[2020-09-16] MEDS: ENOXAPARIN 40 MG/0.4 ML SYRINGE SUBCUT SCH (08:55)
[2020-09-16] MEDS: ESCITALOPRAM 10 MG TABLET PO SCH (08:55)
[2020-09-16] MEDS: FAMOTIDINE 20 MG TABLET PO SCH (08:55)
[2020-09-16] MEDS: TAMSULOSIN 0.4 MG CAPSULE PO SCH ×2 (08:55→20:56)
[2020-09-16] MEDS: GABAPENTIN 400 MG CAPSULE PO SCH ×2 (08:55→20:55)
[2020-09-16] MEDS: amLODIPine 10 MG TABLET PO SCH (08:55)
[2020-09-16] MEDS: LOSARTAN 50 MG TABLET PO SCH (08:55)
[2020-09-16] MEDS: OXYBUTYNIN 5 MG TABLET PO SCH ×3 (08:55→20:56)
[2020-09-16] MEDS: diphenhydrAMINE CAP 25 MG CAPSULE PO PRN (20:55)
[2020-09-17 05:23] LABS: Basophils # 0.1 10*3/uL (0.0-0.2); Eosinophils # 0.4 10*3/uL (0.0-0.87); Eosinophils % 9.1 % (0.00-10.9); Hematocrit 35.9 VOL% (42.0-52.0); Hemoglobin 11.2 GM/DL (14.0-18.0); Immature Granulocytes % 0.4 %; Immature Granulocytes Absolute 0.02 #; Lymphocytes # 1.2 10*3/uL (1.4-4.0); Lymphocytes % 23.9 % (21.2-54.2); Mean Corpuscular HGB Conc 31.2 GM/DL (32-36); Mean Corpuscular Volume 99.2 FL (87-102); Mean Platelet Volume 9.1 FL (9.6-12.0); Monocytes % 15.5 % (1.7-12.7); Neutrophils % 50.1 % (38.7-73.9); Platelet Count 376 T/CUMM (130-400); Red Blood Count 3.62 MC/CUMM (3.8-5.5); Red Cell Distribution Width 15.9 % (9.3-17.3); White Blood Count 4.9 T/CUMM (4-12)
[2020-09-17 05:43] LABS: Calcium 8.8 MG/DL (8.5-10.1); Osmolality,Calculated 280.4 MOS/KG (273-304); Potassium 4.3 MMOL/L (3.5-5.1)
[2020-09-17] MEDS: amLODIPine 10 MG TABLET PO SCH (09:34)
[2020-09-17] MEDS: FAMOTIDINE 20 MG TABLET PO SCH (09:34)
[2020-09-17] MEDS: LOSARTAN 50 MG TABLET PO SCH (09:34)
[2020-09-17] MEDS: DOCUSATE SODIUM 100 MG CAPSULE PO SCH ×2 (09:34→20:34)
[2020-09-17] MEDS: ESCITALOPRAM 10 MG TABLET PO SCH (09:34)
[2020-09-17] MEDS: TAMSULOSIN 0.4 MG CAPSULE PO SCH ×2 (09:34→20:34)
[2020-09-17] MEDS: OXYBUTYNIN 5 MG TABLET PO SCH ×3 (09:34→20:34)
[2020-09-17] MEDS: POLYETHYLENE GLYCOL POWDER 17 GM PACK PO SCH (09:35)
[2020-09-17] MEDS: ENOXAPARIN 40 MG/0.4 ML SYRINGE SUBCUT SCH (09:35)
[2020-09-17] MEDS: GABAPENTIN 400 MG CAPSULE PO SCH ×2 (09:35→20:34)
[2020-09-17] MEDS ORDERED: VANCOMYCIN INJ 1,000 MG in SODIUM CHLORIDE 0.9% 250 ML IV SCH (14:30)
[2020-09-17] MEDS: VANCOMYCIN INJ 1,500 MG in SODIUM CHLORIDE 0.9% 500 ML IV SCH (15:24)
[2020-09-18] MEDS: VANCOMYCIN INJ 1,500 MG in SODIUM CHLORIDE 0.9% 500 ML IV SCH ×2 (03:37→15:55)
[2020-09-18 05:42] LABS: Basophils # 0.1 10*3/uL (0.0-0.2); Basophils % 1.2 % (0.0-0.8); Eosinophils # 0.4 10*3/uL (0.0-0.87); Eosinophils % 7.4 % (0.00-10.9); Hematocrit 34.2 VOL% (42.0-52.0); Hemoglobin 10.9 GM/DL (14.0-18.0); Immature Granulocytes % 0.4 %; Immature Granulocytes Absolute 0.02 #; Lymphocytes # 1.3 10*3/uL (1.4-4.0); Lymphocytes % 24.8 % (21.2-54.2); Mean Corpuscular HGB Conc 31.9 GM/DL (32-36); Mean Corpuscular Volume 98.6 FL (87-102); Mean Platelet Volume 8.9 FL (9.6-12.0); Monocytes % 14.5 % (1.7-12.7); Neutrophils % 51.7 % (38.7-73.9); Platelet Count 353 T/CUMM (130-400); Red Blood Count 3.47 MC/CUMM (3.8-5.5); Red Cell Distribution Width 15.9 % (9.3-17.3); White Blood Count 5.2 T/CUMM (4-12)
[2020-09-18 06:03] LABS: Hypochromasia 1+; Microcytosis 1+; Platelet Estimate Adequate
[2020-09-18 06:08] LABS: Calcium 8.6 MG/DL (8.5-10.1); Osmolality,Calculated 280.4 MOS/KG (273-304); Potassium 4.2 MMOL/L (3.5-5.1)
[2020-09-18] MEDS: POLYETHYLENE GLYCOL POWDER 17 GM PACK PO SCH (08:58)
[2020-09-18] MEDS: LOSARTAN 50 MG TABLET PO SCH (08:59)
[2020-09-18] MEDS: ENOXAPARIN 40 MG/0.4 ML SYRINGE SUBCUT SCH (08:59)
[2020-09-18] MEDS: GABAPENTIN 400 MG CAPSULE PO SCH ×2 (08:59→20:08)
[2020-09-18] MEDS: ESCITALOPRAM 10 MG TABLET PO SCH (08:59)
[2020-09-18] MEDS: amLODIPine 10 MG TABLET PO SCH (08:59)
[2020-09-18] MEDS: OXYBUTYNIN 5 MG TABLET PO SCH ×3 (08:59→20:08)
[2020-09-18] MEDS: DOCUSATE SODIUM 100 MG CAPSULE PO SCH ×2 (08:59→20:08)
[2020-09-18] MEDS: TAMSULOSIN 0.4 MG CAPSULE PO SCH ×2 (08:59→20:09)
[2020-09-18] MEDS: FAMOTIDINE 20 MG TABLET PO SCH (08:59)
[2020-09-18] MEDS: cefTRIAXone 2,000 MG in SYRINGE 1 EACH IV SCH (11:04)
[2020-09-18] MEDS: diphenhydrAMINE CAP 25 MG CAPSULE PO PRN (20:08)
[2020-09-19] MEDS: VANCOMYCIN INJ 1,500 MG in SODIUM CHLORIDE 0.9% 500 ML IV SCH ×2 (05:57→16:13)
[2020-09-19 06:53] LABS: Calcium 8.8 MG/DL (8.5-10.1); Osmolality,Calculated 277.5 MOS/KG (273-304); Potassium 3.9 MMOL/L (3.5-5.1)
[2020-09-19 08:24] LABS: Basophils % 0.9 % (0.0-0.8); Eosinophils # 0.3 10*3/uL (0.0-0.87); Eosinophils % 7.2 % (0.00-10.9); Hematocrit 36.2 VOL% (42.0-52.0); Hemoglobin 11.9 GM/DL (14.0-18.0); Immature Granulocytes % 0.2 %; Immature Granulocytes Absolute 0.01 #; Lymphocytes % 22.5 % (21.2-54.2); Mean Corpuscular HGB Conc 32.9 GM/DL (32-36); Mean Corpuscular Volume 96.8 FL (87-102); Mean Platelet Volume 8.9 FL (9.6-12.0); Monocytes % 15.3 % (1.7-12.7); Neutrophils % 53.9 % (38.7-73.9); Platelet Count 351 T/CUMM (130-400); Red Blood Count 3.74 MC/CUMM (3.8-5.5); Red Cell Distribution Width 15.9 % (9.3-17.3); White Blood Count 4.3 T/CUMM (4-12)
[2020-09-19] MEDS: FAMOTIDINE 20 MG TABLET PO SCH (10:10)
[2020-09-19] MEDS: amLODIPine 10 MG TABLET PO SCH (10:10)
[2020-09-19] MEDS: DOCUSATE SODIUM 100 MG CAPSULE PO SCH ×2 (10:10→21:41)
[2020-09-19] MEDS: OXYBUTYNIN 5 MG TABLET PO SCH ×3 (10:10→21:41)
[2020-09-19] MEDS: LOSARTAN 50 MG TABLET PO SCH (10:10)
[2020-09-19] MEDS: POLYETHYLENE GLYCOL POWDER 17 GM PACK PO SCH (10:10)
[2020-09-19] MEDS: GABAPENTIN 400 MG CAPSULE PO SCH ×2 (10:10→21:41)
[2020-09-19] MEDS: ENOXAPARIN 40 MG/0.4 ML SYRINGE SUBCUT SCH (10:11)
[2020-09-19] MEDS: TAMSULOSIN 0.4 MG CAPSULE PO SCH ×2 (10:11→21:41)
[2020-09-19] MEDS: ESCITALOPRAM 10 MG TABLET PO SCH (10:11)
[2020-09-19] MEDS: cefTRIAXone 2,000 MG in SYRINGE 1 EACH IV SCH (10:13)
[2020-09-19] MEDS: diphenhydrAMINE CAP 25 MG CAPSULE PO PRN (21:41)
[2020-09-20 06:12] LABS: Basophils % 0.5 % (0.0-0.8); Eosinophils # 0.3 10*3/uL (0.0-0.87); Eosinophils % 7.6 % (0.00-10.9); Hematocrit 35.9 VOL% (42.0-52.0); Hemoglobin 11.3 GM/DL (14.0-18.0); Immature Granulocytes % 0.2 %; Immature Granulocytes Absolute 0.01 #; Lymphocytes # 1.1 10*3/uL (1.4-4.0); Mean Corpuscular HGB Conc 31.5 GM/DL (32-36); Mean Corpuscular Volume 99.2 FL (87-102); Monocytes % 16.8 % (1.7-12.7); Neutrophils % 48.9 % (38.7-73.9); Platelet Count 351 T/CUMM (130-400); Red Blood Count 3.62 MC/CUMM (3.8-5.5); Red Cell Distribution Width 15.7 % (9.3-17.3); White Blood Count 4.3 T/CUMM (4-12)
[2020-09-20 06:29] LABS: Osmolality,Calculated 281.3 MOS/KG (273-304); Potassium 4.2 MMOL/L (3.5-5.1)
[2020-09-20] MEDS: VANCOMYCIN INJ 1,500 MG in SODIUM CHLORIDE 0.9% 500 ML IV SCH ×2 (06:40→18:12)
[2020-09-20 06:44] LABS: Eosinophils 8 % (0-10); Lymphocytes 25 % (20-55); Platelet Estimate Normal; Segmented Neutrophils 55 % (50-85); Total Cells Counted 100
[2020-09-20] MEDS: POLYETHYLENE GLYCOL POWDER 17 GM PACK PO SCH (10:51)
[2020-09-20] MEDS: FAMOTIDINE 20 MG TABLET PO SCH (10:52)
[2020-09-20] MEDS: TAMSULOSIN 0.4 MG CAPSULE PO SCH ×2 (10:52→20:53)
[2020-09-20] MEDS: LOSARTAN 50 MG TABLET PO SCH (10:52)
[2020-09-20] MEDS: OXYBUTYNIN 5 MG TABLET PO SCH ×3 (10:52→20:54)
[2020-09-20] MEDS: DOCUSATE SODIUM 100 MG CAPSULE PO SCH ×2 (10:52→20:54)
[2020-09-20] MEDS: amLODIPine 10 MG TABLET PO SCH (10:52)
[2020-09-20] MEDS: ENOXAPARIN 40 MG/0.4 ML SYRINGE SUBCUT SCH (10:52)
[2020-09-20] MEDS: GABAPENTIN 400 MG CAPSULE PO SCH ×2 (10:53→20:53)
[2020-09-20] MEDS: ESCITALOPRAM 10 MG TABLET PO SCH (10:53)
[2020-09-20] MEDS: cefTRIAXone 2,000 MG in SYRINGE 1 EACH IV SCH (11:26)
[2020-09-20] MEDS: diphenhydrAMINE CAP 25 MG CAPSULE PO PRN (20:53)
[2020-09-21] MEDS: VANCOMYCIN INJ 1,500 MG in SODIUM CHLORIDE 0.9% 500 ML IV SCH ×2 (06:01→18:17)
[2020-09-21 06:47] LABS: Basophils % 1.1 % (0.0-0.8); Eosinophils # 0.3 10*3/uL (0.0-0.87); Eosinophils % 8.9 % (0.00-10.9); Hemoglobin 11.7 GM/DL (14.0-18.0); Immature Granulocytes % 0.5 %; Immature Granulocytes Absolute 0.02 #; Lymphocytes # 0.9 10*3/uL (1.4-4.0); Lymphocytes % 23.9 % (21.2-54.2); Mean Corpuscular HGB Conc 31.6 GM/DL (32-36); Mean Corpuscular Volume 99.2 FL (87-102); Mean Platelet Volume 9.2 FL (9.6-12.0); Monocytes % 16.4 % (1.7-12.7); Neutrophils % 49.2 % (38.7-73.9); Platelet Count 321 T/CUMM (130-400); Red Blood Count 3.73 MC/CUMM (3.8-5.5); Red Cell Distribution Width 15.9 % (9.3-17.3); White Blood Count 3.7 T/CUMM (4-12)
[2020-09-21 07:08] LABS: Eosinophils 6 % (0-10); Hypochromasia 1+; Lymphocytes 25 % (20-55); Platelet Estimate Adequate; Segmented Neutrophils 56 % (50-85); Total Cells Counted 100
[2020-09-21 07:12] LABS: Calcium 8.9 MG/DL (8.5-10.1); Osmolality,Calculated 281.3 MOS/KG (273-304); Potassium 4.2 MMOL/L (3.5-5.1)
[2020-09-21] MEDS: ENOXAPARIN 40 MG/0.4 ML SYRINGE SUBCUT SCH (10:26)
[2020-09-21] MEDS: TAMSULOSIN 0.4 MG CAPSULE PO SCH ×2 (10:26→20:53)
[2020-09-21] MEDS: POLYETHYLENE GLYCOL POWDER 17 GM PACK PO SCH (10:26)
[2020-09-21] MEDS: OXYBUTYNIN 5 MG TABLET PO SCH ×3 (10:26→20:53)
[2020-09-21] MEDS: ESCITALOPRAM 10 MG TABLET PO SCH (10:27)
[2020-09-21] MEDS: LOSARTAN 50 MG TABLET PO SCH (10:27)
[2020-09-21] MEDS: DOCUSATE SODIUM 100 MG CAPSULE PO SCH ×2 (10:27→20:55)
[2020-09-21] MEDS: FAMOTIDINE 20 MG TABLET PO SCH (10:27)
[2020-09-21] MEDS: GABAPENTIN 400 MG CAPSULE PO SCH ×2 (10:27→20:55)
[2020-09-21] MEDS: amLODIPine 10 MG TABLET PO SCH (10:27)
[2020-09-21] MEDS: diphenhydrAMINE CAP 25 MG CAPSULE PO PRN (20:53)
[2020-09-22] MEDS: SODIUM HYPOCHLORITE 0.25% IRRIG 473 ML BOTTLE TOP PRN (00:08)
[2020-09-22] MEDS: VANCOMYCIN INJ 1,500 MG in SODIUM CHLORIDE 0.9% 500 ML IV SCH ×2 (05:59→17:02)
[2020-09-22 06:16] LABS: Basophils % 0.9 % (0.0-0.8); Eosinophils # 0.4 10*3/uL (0.0-0.87); Eosinophils % 8.4 % (0.00-10.9); Hematocrit 35.4 VOL% (42.0-52.0); Hemoglobin 11.4 GM/DL (14.0-18.0); Immature Granulocytes % 0.2 %; Immature Granulocytes Absolute 0.01 #; Lymphocytes # 1.3 10*3/uL (1.4-4.0); Lymphocytes % 30.9 % (21.2-54.2); Mean Corpuscular HGB Conc 32.2 GM/DL (32-36); Mean Corpuscular Volume 99.2 FL (87-102); Mean Platelet Volume 9.1 FL (9.6-12.0); Monocytes % 17.2 % (1.7-12.7); Neutrophils % 42.4 % (38.7-73.9); Platelet Count 326 T/CUMM (130-400); Red Blood Count 3.57 MC/CUMM (3.8-5.5); Red Cell Distribution Width 15.5 % (9.3-17.3); White Blood Count 4.3 T/CUMM (4-12)
[2020-09-22 06:34] LABS: Calcium 9.1 MG/DL (8.5-10.1); Osmolality,Calculated 279.4 MOS/KG (273-304)
[2020-09-22 07:00] LABS: Atypical Lymphocytes Few; Eosinophils 13 % (0-10); Hypochromasia 1+; Lymphocytes 32 % (20-55); Microcytosis 1+; Segmented Neutrophils 45 % (50-85); Total Cells Counted 100
[2020-09-22] MEDS: ESCITALOPRAM 10 MG TABLET PO SCH (09:15)
[2020-09-22] MEDS: OXYBUTYNIN 5 MG TABLET PO SCH ×3 (09:15→21:18)
[2020-09-22] MEDS: LOSARTAN 50 MG TABLET PO SCH (09:15)
[2020-09-22] MEDS: DOCUSATE SODIUM 100 MG CAPSULE PO SCH ×2 (09:15→21:18)
[2020-09-22] MEDS: TAMSULOSIN 0.4 MG CAPSULE PO SCH ×2 (09:15→21:18)
[2020-09-22] MEDS: FAMOTIDINE 20 MG TABLET PO SCH (09:15)
[2020-09-22] MEDS: GABAPENTIN 400 MG CAPSULE PO SCH ×2 (09:16→21:19)
[2020-09-22] MEDS: amLODIPine 10 MG TABLET PO SCH (09:16)
[2020-09-22] MEDS: POLYETHYLENE GLYCOL POWDER 17 GM PACK PO SCH (09:16)
[2020-09-22] MEDS: ENOXAPARIN 40 MG/0.4 ML SYRINGE SUBCUT SCH (09:16)
[2020-09-22] MEDS: diphenhydrAMINE CAP 25 MG CAPSULE PO PRN (21:19)
[2020-09-23] MEDS: VANCOMYCIN INJ 1,500 MG in SODIUM CHLORIDE 0.9% 500 ML IV SCH ×3 (05:39→17:00)
[2020-09-23 06:47] LABS: Eosinophils # 0.3 10*3/uL (0.0-0.87); Eosinophils % 7.9 % (0.00-10.9); Hemoglobin 11.5 GM/DL (14.0-18.0); Immature Granulocytes % 0.3 %; Immature Granulocytes Absolute 0.01 #; Lymphocytes % 25.6 % (21.2-54.2); Mean Corpuscular HGB Conc 31.9 GM/DL (32-36); Mean Platelet Volume 8.6 FL (9.6-12.0); Monocytes % 15.4 % (1.7-12.7); Neutrophils % 49.8 % (38.7-73.9); Platelet Count 289 T/CUMM (130-400); Red Blood Count 3.71 MC/CUMM (3.8-5.5); Red Cell Distribution Width 15.6 % (9.3-17.3); White Blood Count 3.9 T/CUMM (4-12)
[2020-09-23 07:08] LABS: Calcium 9.1 MG/DL (8.5-10.1); Osmolality,Calculated 275.7 MOS/KG (273-304); Potassium 4.1 MMOL/L (3.5-5.1)
[2020-09-23] MEDS: ENOXAPARIN 40 MG/0.4 ML SYRINGE SUBCUT SCH (08:27)
[2020-09-23] MEDS: GABAPENTIN 400 MG CAPSULE PO SCH ×2 (08:28→21:52)
[2020-09-23] MEDS: amLODIPine 10 MG TABLET PO SCH (08:28)
[2020-09-23] MEDS: DOCUSATE SODIUM 100 MG CAPSULE PO SCH ×2 (08:28→21:52)
[2020-09-23] MEDS: TAMSULOSIN 0.4 MG CAPSULE PO SCH ×2 (08:29→21:51)
[2020-09-23] MEDS: FAMOTIDINE 20 MG TABLET PO SCH (08:29)
[2020-09-23] MEDS: OXYBUTYNIN 5 MG TABLET PO SCH ×4 (08:29→21:51)
[2020-09-23] MEDS: LOSARTAN 50 MG TABLET PO SCH (08:29)
[2020-09-23] MEDS: ESCITALOPRAM 10 MG TABLET PO SCH (08:29)
[2020-09-23] MEDS: POLYETHYLENE GLYCOL POWDER 17 GM PACK PO SCH (08:29)
[2020-09-23] MEDS: diphenhydrAMINE CAP 25 MG CAPSULE PO PRN (21:52)
[2020-09-24] MEDS: VANCOMYCIN INJ 1,500 MG in SODIUM CHLORIDE 0.9% 500 ML IV SCH (05:28)
[2020-09-24] MEDS: LOSARTAN 50 MG TABLET PO SCH (11:18)
[2020-09-24] MEDS: FAMOTIDINE 20 MG TABLET PO SCH (11:18)
[2020-09-24] MEDS: amLODIPine 10 MG TABLET PO SCH (11:18)
[2020-09-24] MEDS: OXYBUTYNIN 5 MG TABLET PO SCH ×3 (11:19→20:40)
[2020-09-24] MEDS: TAMSULOSIN 0.4 MG CAPSULE PO SCH ×2 (11:19→20:41)
[2020-09-24] MEDS: CIPROFLOXACIN 500 MG TABLET PO SCH ×2 (11:19→20:40)
[2020-09-24] MEDS: ESCITALOPRAM 10 MG TABLET PO SCH (11:19)
[2020-09-24] MEDS: ENOXAPARIN 40 MG/0.4 ML SYRINGE SUBCUT SCH (11:20)
[2020-09-24] MEDS: POLYETHYLENE GLYCOL POWDER 17 GM PACK PO SCH (11:20)
[2020-09-24] MEDS: GABAPENTIN 400 MG CAPSULE PO SCH ×2 (11:20→20:41)
[2020-09-24] MEDS: DOCUSATE SODIUM 100 MG CAPSULE PO SCH ×2 (11:20→20:41)
[2020-09-24] MEDS: diphenhydrAMINE CAP 25 MG CAPSULE PO PRN (20:41)
[2020-09-25 06:54] LABS: Eosinophils # 0.4 10*3/uL (0.0-0.87); Eosinophils % 10.7 % (0.00-10.9); Hematocrit 33.6 VOL% (42.0-52.0); Hemoglobin 10.8 GM/DL (14.0-18.0); Immature Granulocytes % 0.3 %; Immature Granulocytes Absolute 0.01 #; Lymphocytes # 1.1 10*3/uL (1.4-4.0); Lymphocytes % 28.7 % (21.2-54.2); Mean Corpuscular HGB Conc 32.1 GM/DL (32-36); Mean Corpuscular Volume 96.8 FL (87-102); Neutrophils % 40.3 % (38.7-73.9); Platelet Count 270 T/CUMM (130-400); Red Blood Count 3.47 MC/CUMM (3.8-5.5); Red Cell Distribution Width 15.7 % (9.3-17.3); White Blood Count 3.9 T/CUMM (4-12)
[2020-09-25 07:16] LABS: Hypochromasia 1+
[2020-09-25 07:17] LABS: Microcytosis 1+; Platelet Estimate Normal
[2020-09-25 08:12] LABS: Calcium 8.9 MG/DL (8.5-10.1); Osmolality,Calculated 281.1 MOS/KG (273-304); Potassium 3.9 MMOL/L (3.5-5.1)
[2020-09-25] MEDS: ESCITALOPRAM 10 MG TABLET PO SCH (10:35)
[2020-09-25] MEDS: CIPROFLOXACIN 500 MG TABLET PO SCH (10:35)
[2020-09-25] MEDS: OXYBUTYNIN 5 MG TABLET PO SCH ×3 (10:35→20:11)
[2020-09-25] MEDS: GABAPENTIN 400 MG CAPSULE PO SCH ×2 (10:35→20:11)
[2020-09-25] MEDS: DOCUSATE SODIUM 100 MG CAPSULE PO SCH ×2 (10:35→20:11)
[2020-09-25] MEDS: amLODIPine 10 MG TABLET PO SCH (10:36)
[2020-09-25] MEDS: FAMOTIDINE 20 MG TABLET PO SCH (10:36)
[2020-09-25] MEDS: TAMSULOSIN 0.4 MG CAPSULE PO SCH ×2 (10:36→20:11)
[2020-09-25] MEDS: ENOXAPARIN 40 MG/0.4 ML SYRINGE SUBCUT SCH (10:36)
[2020-09-25] MEDS: LOSARTAN 50 MG TABLET PO SCH (10:36)
[2020-09-25] MEDS: POLYETHYLENE GLYCOL POWDER 17 GM PACK PO SCH (10:37)
[2020-09-25] MEDS: diphenhydrAMINE CAP 25 MG CAPSULE PO PRN (20:11)
[2020-09-26] MEDS: CIPROFLOXACIN 500 MG TABLET PO SCH ×3 (00:25→20:51)
[2020-09-26] MEDS: DOCUSATE SODIUM 100 MG CAPSULE PO SCH ×2 (09:06→20:51)
[2020-09-26] MEDS: ENOXAPARIN 40 MG/0.4 ML SYRINGE SUBCUT SCH (09:06)
[2020-09-26] MEDS: OXYBUTYNIN 5 MG TABLET PO SCH ×3 (09:06→20:51)
[2020-09-26] MEDS: GABAPENTIN 400 MG CAPSULE PO SCH ×2 (09:06→20:51)
[2020-09-26] MEDS: amLODIPine 10 MG TABLET PO SCH (09:07)
[2020-09-26] MEDS: FAMOTIDINE 20 MG TABLET PO SCH (09:07)
[2020-09-26] MEDS: TAMSULOSIN 0.4 MG CAPSULE PO SCH ×2 (09:07→20:51)
[2020-09-26] MEDS: LOSARTAN 50 MG TABLET PO SCH (09:07)
[2020-09-26] MEDS: ESCITALOPRAM 10 MG TABLET PO SCH (09:07)
[2020-09-26] MEDS: POLYETHYLENE GLYCOL POWDER 17 GM PACK PO SCH (15:39)
[2020-09-26] MEDS: diphenhydrAMINE CAP 25 MG CAPSULE PO PRN (20:51)
[2020-09-27 06:31] LABS: Basophils # 0.1 10*3/uL (0.0-0.2); Basophils % 1.3 % (0.0-0.8); Eosinophils # 0.3 10*3/uL (0.0-0.87); Eosinophils % 8.7 % (0.00-10.9); Hematocrit 34.6 VOL% (42.0-52.0); Hemoglobin 11.3 GM/DL (14.0-18.0); Lymphocytes # 1.4 10*3/uL (1.4-4.0); Mean Corpuscular HGB Conc 32.7 GM/DL (32-36); Mean Corpuscular Volume 97.2 FL (87-102); Platelet Count 275 T/CUMM (130-400); Red Blood Count 3.56 MC/CUMM (3.8-5.5); Red Cell Distribution Width 15.2 % (9.3-17.3); White Blood Count 3.9 T/CUMM (4-12)
[2020-09-27 07:19] LABS: Osmolality,Calculated 277.5 MOS/KG (273-304); Potassium 4.3 MMOL/L (3.5-5.1)
[2020-09-27 07:51] LABS: Anisocytosis 1+; Band Neutrophils 1 % (0-10); Eosinophils 14 % (0-10); Lymphocytes 34 % (20-55); Macrocytosis 1+; Platelet Estimate Normal; Segmented Neutrophils 31 % (50-85); Total Cells Counted 100
[2020-09-27] MEDS: ESCITALOPRAM 10 MG TABLET PO SCH (09:02)
[2020-09-27] MEDS: LOSARTAN 50 MG TABLET PO SCH (09:03)
[2020-09-27] MEDS: amLODIPine 10 MG TABLET PO SCH (09:04)
[2020-09-27] MEDS: TAMSULOSIN 0.4 MG CAPSULE PO SCH ×2 (09:04→20:10)
[2020-09-27] MEDS: DOCUSATE SODIUM 100 MG CAPSULE PO SCH ×2 (09:04→20:14)
[2020-09-27] MEDS: GABAPENTIN 400 MG CAPSULE PO SCH ×2 (09:05→20:10)
[2020-09-27] MEDS: FAMOTIDINE 20 MG TABLET PO SCH (09:05)
[2020-09-27] MEDS: OXYBUTYNIN 5 MG TABLET PO SCH ×3 (09:05→20:11)
[2020-09-27] MEDS: ENOXAPARIN 40 MG/0.4 ML SYRINGE SUBCUT SCH (09:09)
[2020-09-27] MEDS: POLYETHYLENE GLYCOL POWDER 17 GM PACK PO SCH (09:11)
[2020-09-27] MEDS: diphenhydrAMINE CAP 25 MG CAPSULE PO PRN (20:11)
[2020-09-28] MEDS: TAMSULOSIN 0.4 MG CAPSULE PO SCH ×2 (08:44→20:09)
[2020-09-28] MEDS: LOSARTAN 50 MG TABLET PO SCH (08:44)
[2020-09-28] MEDS: FAMOTIDINE 20 MG TABLET PO SCH (08:44)
[2020-09-28] MEDS: DOCUSATE SODIUM 100 MG CAPSULE PO SCH ×2 (08:44→20:09)
[2020-09-28] MEDS: GABAPENTIN 400 MG CAPSULE PO SCH ×2 (08:44→20:11)
[2020-09-28] MEDS: ENOXAPARIN 40 MG/0.4 ML SYRINGE SUBCUT SCH (08:45)
[2020-09-28] MEDS: amLODIPine 10 MG TABLET PO SCH (08:45)
[2020-09-28] MEDS: POLYETHYLENE GLYCOL POWDER 17 GM PACK PO SCH (08:45)
[2020-09-28] MEDS: ESCITALOPRAM 10 MG TABLET PO SCH (10:36)
[2020-09-28] MEDS: OXYBUTYNIN 5 MG TABLET PO SCH ×3 (10:36→20:10)
[2020-09-28] MEDS: diphenhydrAMINE CAP 25 MG CAPSULE PO PRN (20:09)
[2020-09-29] MEDS: LOSARTAN 50 MG TABLET PO SCH (09:17)
[2020-09-29] MEDS: TAMSULOSIN 0.4 MG CAPSULE PO SCH ×2 (09:18→21:01)
[2020-09-29] MEDS: ESCITALOPRAM 10 MG TABLET PO SCH (09:18)
[2020-09-29] MEDS: DOCUSATE SODIUM 100 MG CAPSULE PO SCH ×2 (09:18→21:01)
[2020-09-29] MEDS: OXYBUTYNIN 5 MG TABLET PO SCH ×3 (09:18→21:01)
[2020-09-29] MEDS: amLODIPine 10 MG TABLET PO SCH (09:19)
[2020-09-29] MEDS: GABAPENTIN 400 MG CAPSULE PO SCH ×2 (09:19→21:01)
[2020-09-29] MEDS: POLYETHYLENE GLYCOL POWDER 17 GM PACK PO SCH (09:19)
[2020-09-29] MEDS: FAMOTIDINE 20 MG TABLET PO SCH (09:19)
[2020-09-29] MEDS: ENOXAPARIN 40 MG/0.4 ML SYRINGE SUBCUT SCH (09:20)
[2020-09-29] MEDS: diphenhydrAMINE CAP 25 MG CAPSULE PO PRN (21:01)
[2020-09-30] MEDS: ESCITALOPRAM 10 MG TABLET PO SCH (09:07)
[2020-09-30] MEDS: LOSARTAN 50 MG TABLET PO SCH (09:07)
[2020-09-30] MEDS: GABAPENTIN 400 MG CAPSULE PO SCH ×2 (09:07→21:25)
[2020-09-30] MEDS: FAMOTIDINE 20 MG TABLET PO SCH (09:08)
[2020-09-30] MEDS: amLODIPine 10 MG TABLET PO SCH (09:08)
[2020-09-30] MEDS: OXYBUTYNIN 5 MG TABLET PO SCH ×3 (09:08→21:26)
[2020-09-30] MEDS: ENOXAPARIN 40 MG/0.4 ML SYRINGE SUBCUT SCH (09:08)
[2020-09-30] MEDS: TAMSULOSIN 0.4 MG CAPSULE PO SCH ×2 (09:08→21:25)
[2020-09-30] MEDS: DOCUSATE SODIUM 100 MG CAPSULE PO SCH ×2 (09:15→21:25)
[2020-09-30] MEDS: POLYETHYLENE GLYCOL POWDER 17 GM PACK PO SCH (09:15)
[2020-09-30] MEDS: diphenhydrAMINE CAP 25 MG CAPSULE PO PRN (21:26)
[2020-10-01] MEDS: POLYETHYLENE GLYCOL POWDER 17 GM PACK PO SCH (09:09)
[2020-10-01] MEDS: ENOXAPARIN 40 MG/0.4 ML SYRINGE SUBCUT SCH (09:09)
[2020-10-01] MEDS: GABAPENTIN 400 MG CAPSULE PO SCH ×2 (09:09→21:33)
[2020-10-01] MEDS: ESCITALOPRAM 10 MG TABLET PO SCH (09:09)
[2020-10-01] MEDS: DOCUSATE SODIUM 100 MG CAPSULE PO SCH ×2 (09:09→21:33)
[2020-10-01] MEDS: amLODIPine 10 MG TABLET PO SCH (09:10)
[2020-10-01] MEDS: TAMSULOSIN 0.4 MG CAPSULE PO SCH ×2 (09:10→21:33)
[2020-10-01] MEDS: OXYBUTYNIN 5 MG TABLET PO SCH ×2 (09:10→21:32)
[2020-10-01] MEDS: FAMOTIDINE 20 MG TABLET PO SCH (09:10)
[2020-10-01] MEDS: LOSARTAN 50 MG TABLET PO SCH (09:10)
[2020-10-01 23:39] VITALS: BP 122/66
== END 2020-10-02 00:15 | DRG 957 ==
LOC: N.OR 17:12 → SUATTDRO 20:53 → N.ICU 20:53 → N.3E 08-20 12:03
PROVIDERS: ADMIT Surgery; ATTEND Internal Medicine Geriatric Medicine

== ENCOUNTER 2021-04-29 05:53 | Inpatient (IN) ==
[2021-04-20 12:34] LABS: Basophils # 0.1 10*3/uL (0.0-0.2); Basophils % 0.8 % (0.0-0.8); Eosinophils # 0.2 10*3/uL (0.0-0.87); Eosinophils % 2.6 % (0.00-10.9); Hematocrit 43.1 VOL% (42.0-52.0); Hemoglobin 14.3 GM/DL (14.0-18.0); Immature Granulocytes % 0.3 %; Immature Granulocytes Absolute 0.02 #; Lymphocytes # 2.3 10*3/uL (1.4-4.0); Lymphocytes % 29.3 % (21.2-54.2); Mean Corpuscular HGB Conc 33.2 GM/DL (32-36); Mean Corpuscular Volume 94.9 FL (87-102); Mean Platelet Volume 9.4 FL (9.6-12.0); Monocytes % 11.4 % (1.7-12.7); Neutrophils % 55.6 % (38.7-73.9); Platelet Count 319 T/CUMM (130-400); Red Blood Count 4.54 MC/CUMM (3.8-5.5); Red Cell Distribution Width 11.8 % (9.3-17.3); White Blood Count 7.7 T/CUMM (4-12)
[2021-04-20 13:02] LABS: Osmolality,Calculated 282.4 MOS/KG (273-304); Potassium 4.1 MMOL/L (3.5-5.1)
[~2021-04-29 05:53] MED LIST: ACETAMINOPHEN 500 MG TABLET PO ONE; DIAZEPAM 5 MG TABLET PO ONE; FAMOTIDINE 20 MG TABLET PO ONE; GABAPENTIN 400 MG CAPSULE PO ONE
[2021-04-29] MEDS ORDERED: cefOXitin 1,000 MG in SODIUM CHLORIDE 0.9% 100 ML IV ONE (06:00)
[2021-04-29] MEDS ORDERED: FAMOTIDINE 20 MG TABLET ONE (06:01)
[2021-04-29] MEDS ORDERED: ACETAMINOPHEN 500 MG TABLET ONE (06:01)
[2021-04-29] MEDS ORDERED: DIAZEPAM 5 MG TABLET ONE (06:01)
[2021-04-29] MEDS ORDERED: GABAPENTIN 400 MG CAPSULE ONE (06:01)
[2021-04-29] MEDS: LACTATED RINGERS 1,000 ML IV SCH ×2 (06:32→08:31)
[2021-04-29] MEDS ORDERED: ROCURONIUM 50 MG/5 ML VIAL IV ONE ×2 (06:39→08:40)
[2021-04-29] MEDS ORDERED: propofoL 200 MG/20 ML VIAL IV ONE (06:39)
[2021-04-29] MEDS ORDERED: SUCCINYLCHOLINE 200 MG/10 ML VIAL ONE (06:39)
[2021-04-29] MEDS ORDERED: MIDAZOLAM 2 MG/2 ML VIAL ONE ×2 (06:39→06:50)
[2021-04-29] MEDS ORDERED: LIDOCAINE 2% 5 ML VIAL ONE ×2 (06:39→06:50)
[2021-04-29] MEDS ORDERED: fentaNYL 100 MCG/2 ML VIAL ONE ×4 (06:39→08:41)
[2021-04-29] MEDS ORDERED: ROPIVACAINE 0.5% 30 ML VIAL ONE (06:50)
[2021-04-29] MEDS ORDERED: DEXAMETHASONE 4 MG/1 ML VIAL ONE (06:50)
[2021-04-29] MEDS ORDERED: ALBUTEROL 2.5 MG/3 ML NEB RESP TX ONE (07:39)
[2021-04-29] MEDS ORDERED: ePHEDrine 50 MG/ML VIAL ONE (07:43)
[2021-04-29] MEDS ORDERED: LIDOCAINE 1%/EPI INJ 20 ML VIAL ONE (07:49)
[2021-04-29] MEDS ORDERED: BUPIVACAINE MPF 0.25% 30 ML VIAL ONE (07:49)
[2021-04-29] MEDS ORDERED: ONDANSETRON 4 MG/2 ML VIAL ONE (08:42)
[2021-04-29] MEDS ORDERED: PHENYLEPHRINE 1 MG/10 ML SYRINGE IV ONE (08:48)
[2021-04-29] MEDS ORDERED: SEVOFLURANE 1 UNIT/15 MINUTE INH ONE (08:48)
[2021-04-29] MEDS ORDERED: GLYCOPYRROLATE 0.4 MG/2 ML VIAL ONE (08:49)
[2021-04-29] MEDS ORDERED: NEOSTIGMINE 10 MG/10 ML VIAL ONE (08:50)
[2021-04-29] MEDS ORDERED: HYDROmorphone 2 MG/1 ML VIAL IV PRN ×2 (09:28→09:44)
[2021-04-29] MEDS ORDERED: ONDANSETRON 4 MG/2 ML VIAL IV PRN ×2 (09:28→09:44)
[2021-04-29] MEDS ORDERED: diphenhydrAMINE 50 MG/1 ML VIAL ONE (09:48)
[2021-04-29] MEDS ORDERED: diphenhydrAMINE 50 MG/1 ML VIAL IV PRN (09:50)
[2021-04-29 09:58] LABS: Bilirubin,Urine Negative (Negative); Blood, Urine Moderate mg/dL (Negative); Glucose,Urine (UA) Negative (Negative); Ketones,Urine Negative (Negative); Mucus,Urine Occasional /LPF (Occasional); Nitrite,Urine Negative (Negative); Protein,Urine Negative; RBC,Urine 13 /HPF (0-4); Urine Appearance CLOUDY (Clear); Urine Color Yellow (Yellow); Urine Specific Gravity 1.008 (1.001-1.035); Urine Urobilinogen < 2.0 EU/DL (0.2-1.0)
[2021-04-29] MEDS: GABAPENTIN 400 MG CAPSULE PO SCH ×3 (10:59→21:39)
[2021-04-29] MEDS: DEXTROSE 5% LACTATED RINGERS 1,000 ML IV SCH (11:17)
[2021-04-29] MEDS ORDERED: diphenhydrAMINE CAP 25 MG CAPSULE PO PRN (15:35)
[2021-04-29] MEDS ORDERED: INFLUENZA VIRUS VACCINE 0.5 ML SYRINGE IM ONE (16:16)
[2021-04-29] MEDS: OXYBUTYNIN 5 MG TABLET PO SCH ×2 (16:59→21:46)
[2021-04-29] MEDS: traZODone 50 MG TABLET PO SCH (21:39)
[2021-04-29] MEDS: TAMSULOSIN 0.4 MG CAPSULE PO SCH (21:39)
[2021-04-30] MEDS: DEXTROSE 5% LACTATED RINGERS 1,000 ML IV SCH ×4 (02:29→21:37)
[2021-04-30] MEDS: ENOXAPARIN 40 MG/0.4 ML SYRINGE SUBCUT SCH (04:01)
[2021-04-30] MEDS: GABAPENTIN 400 MG CAPSULE PO SCH ×4 (04:01→21:34)
[2021-04-30 05:03] LABS: Basophils % 0.2 % (0.0-0.8); Eosinophils % 0.1 % (0.00-10.9); Hematocrit 36.9 VOL% (42.0-52.0); Hemoglobin 12.3 GM/DL (14.0-18.0); Immature Granulocytes % 0.5 %; Immature Granulocytes Absolute 0.06 #; Lymphocytes # 1.3 10*3/uL (1.4-4.0); Lymphocytes % 10.1 % (21.2-54.2); Mean Corpuscular HGB Conc 33.3 GM/DL (32-36); Mean Corpuscular Volume 95.8 FL (87-102); Mean Platelet Volume 9.5 FL (9.6-12.0); Monocytes % 9.2 % (1.7-12.7); Neutrophils % 79.9 % (38.7-73.9); Platelet Count 231 T/CUMM (130-400); Red Blood Count 3.85 MC/CUMM (3.8-5.5); Red Cell Distribution Width 11.7 % (9.3-17.3); White Blood Count 12.3 T/CUMM (4-12)
[2021-04-30 05:20] LABS: Calcium 8.6 MG/DL (8.5-10.1); Osmolality,Calculated 274.7 MOS/KG (273-304); Potassium 3.9 MMOL/L (3.5-5.1)
[2021-04-30] MEDS ORDERED: BISACODYL 10 MG SUPP RECTAL ONE (07:23)
[2021-04-30] MEDS ORDERED: MAGNESIUM HYDROXIDE SUSP 30 ML UDCUP PO ONE (07:23)
[2021-04-30] MEDS: LEVOFLOXACIN 500 MG TABLET PO SCH (09:54)
[2021-04-30] MEDS: TAMSULOSIN 0.4 MG CAPSULE PO SCH ×2 (09:54→21:34)
[2021-04-30] MEDS: OXYBUTYNIN 5 MG TABLET PO SCH ×3 (09:54→21:34)
[2021-04-30] MEDS: DILTIAZEM CD 240 MG CAPSULE PO SCH (09:54)
[2021-04-30] MEDS: ESCITALOPRAM 10 MG TABLET PO SCH (09:54)
[2021-04-30] MEDS: PANTOPRAZOLE 40 MG TABLET PO SCH (09:54)
[2021-04-30] MEDS: traZODone 50 MG TABLET PO SCH (21:34)
[2021-05-01] MEDS: ENOXAPARIN 40 MG/0.4 ML SYRINGE SUBCUT SCH (03:54)
[2021-05-01] MEDS: GABAPENTIN 400 MG CAPSULE PO SCH ×2 (03:54→09:10)
[2021-05-01] MEDS: DEXTROSE 5% LACTATED RINGERS 1,000 ML IV SCH (03:56)
[2021-05-01 07:19] VITALS: BP 113/57
[2021-05-01] MEDS: PANTOPRAZOLE 40 MG TABLET PO SCH (09:10)
[2021-05-01] MEDS: DILTIAZEM CD 240 MG CAPSULE PO SCH (09:10)
[2021-05-01] MEDS: LEVOFLOXACIN 500 MG TABLET PO SCH (09:10)
[2021-05-01] MEDS: TAMSULOSIN 0.4 MG CAPSULE PO SCH (09:10)
[2021-05-01] MEDS: ESCITALOPRAM 10 MG TABLET PO SCH (09:10)
[2021-05-01] MEDS: OXYBUTYNIN 5 MG TABLET PO SCH (09:10)
== END 2021-05-01 11:00 | disposition home or self-care (01) | DRG 330 ==
LOC: N.OR 05:53 → N.SDSINP 05:54 → MERGE 07:30 → N.SDSINP 09:28 → N.3E 15:32
PROVIDERS: ADMIT Surgery; ATTEND Surgery